=== PATIENT | female | born 1955 | race African-American/Black ===

== ENCOUNTER 2018-05-14 11:31 | Inpatient (IN) | payer OTHER ==
--- NOTE | 2018-05-14 12:19 | PDOC ---
Attending Attestation - Resident Resident Name: Mau Moreau - HPI HPI: The patient is a 62 year old female (current everyday smoker), with a significant PMH of COPD, asthma, sleep apnea, diabetes, hypertension, hypercholesterolemia, who presents to the emergency department today complaining of shortness of breath for 1 week. Patient was sent by Dr. Trivedi for her progressively worsening dyspnea on exertion and orthopnea. She reports her O2 level was 86 today, and endorses increased use of her portable O2 machine secondary to her worsening SOB. Patient also reports bilateral lower extremity edema, and notes she has not been compliant with her medications lately (only takes them when she feels it is necessary). She notes she has a massive uterine fibroid tumor, which she was told is pressing on her diaphragm causing her SOB. The patient denies headache and dizziness. Denies fever, chills, nausea, vomit, diarrhea and constipation. Denies dysuria, frequency, urgency and hematuria. Allergies: NKA Past surgical history: Appendectomy Social history: Current everyday smoker (4 cigarettes per day) PCP: Dr. Squires Senior Qualitative Researcher: Dr. Maurilio Trivedi Shell Molding Roller Blast Operator: Dr. Landon Tello 05/14/18 13:35 - Physicial Exam PE: GENERAL: Awake, alert, and fully oriented, in mild respiratory distress. HEAD: No signs of trauma EYES: PERRLA, EOMI, sclera anicteric, conjunctiva clear ENT: Auricles normal inspection, hearing grossly normal, nares patent, oropharynx clear without exudates. Moist mucosa NECK: Normal ROM, supple, no lymphadenopathy, JVD, or masses LUNGS: +Decreased air entry bilaterally. +Speaking in short sentences with mild conversational dyspnea. Breath sounds equal. No wheezes, and no crackles HEART: Regular rate and rhythm, normal S1 and S2, no murmurs, rubs or gallops ABDOMEN: Soft, nontender, normoactive bowel sounds. No guarding, no rebound. No masses EXTREMITIES: +2+ pitting edema to the knees bilaterally. Normal range of motion. No clubbing or cyanosis. No cords, erythema, or tenderness NEUROLOGICAL: Cranial nerves II through XII grossly intact. Normal speech, normal gait SKIN: Warm, Dry, normal turgor, no rashes or lesions noted. 05/14/18 13:35 - Medical Decision Making EXAM#: TYPE/EXAM: RESULT: [id number] RAD/CHEST X-RAY PORTABLE* Chest pain evaluate for infiltrate. The heart is enlarged. The right diaphragm is elevated. Left lower lung zone obscured by the cardiac silhouette. No airspace opacities are seen in the left upper lung zone, right lung. No pneumothorax seen. No large pleural effusion is seen within the limitation of the portable nature of examination. Reported By: Jairo Whitfield MD 05/14/18 14:11 Documentation prepared by LESLY Cortes, acting as medical customer service representative for Daniela Queen MD. 05/14/18 14:16 <Clara Avila - Last Filed: 05/14/18 14:16> - Medical Decision Making 05/14/18 19:00 Pt presents to the ED complaining of chronic shortness of breath that is acutely worsening. LAbs and CXR show evidence of CHF. Differential includes CHF exacerbation vs COPD. will treat with nebs and steroids and admit to medicine for continued work up. <Daniela Queen - Last Filed: 05/14/18 19:03>
[2018-05-14 12:52] LABS: BASO % 0.9 % (0-2.0); EOS % 0.7 % (0-4.5); HEMATOCRIT 28.5 % (32.4-45.2); LYMPH % 12.5 % (8-40); MCH 20.9 pg (25.7-33.7); MCHC 31.7 g/dl (32.0-36.0); MEAN CELL VOLUME 66.1 fl (80-96); MEAN PLT VOLUME 8.7 fl (7.5-11.1); MONO % 2.3 % (3.8-10.2); NEUT % 83.6 % (42.8-82.8); PLATELET COUNT 201 K/MM3 (134-434); RBC 4.31 M/mm3 (3.60-5.2); RDW 19.1 % (11.6-15.6); WHITE BLOOD COUNT 17.6 K/mm3 (4.0-10.0)
--- NOTE | 2018-05-14 12:58 | PDOC ---
History of Present Illness - General Stated Complaint: Shortness of Breath Time Seen by Provider: 05/14/18 12:09 History Source: Patient Exam Limitations: No Limitations - History of Present Illness Initial Comments: 05/14/18 12:53 The patient is a 62F with a PMH of COPD, asthma, sleep apnea, diabetes, hypertension, hypercholesterolemia who presents to the ER with 1 week of worsening SOB, sent in by Dr. Morejon, community artist. The patient states that for the past 1 week, she's had worsening WELLS and orthopnea. She denies CP, fever , chills, nausea, vomiting, cough but admits to swelling in her legs and WELLS. Past History - Past Medical History Allergies/Adverse Reactions: Allergies Allergy/AdvReac Type Severity Reaction Status Date / Time No Known Allergies Allergy Verified 04/22/18 15:29 Home Medications: Ambulatory Orders Albuterol Sulfate Inhaler - [Ventolin HFA Inhaler -] 1 - 2 inh PO QID PRN Omeprazole [Prilosec] 0 mg PO DAILY 09/29/15 Zolpidem Tartrate [Ambien] 5 mg PO HS 09/29/15 Budesonide/Formeterol Fumarate [SYMBICORT 160/4.5mcg -] 2 puff IH BID #1 inhaler 10/04/15 Meloxicam 7.5 mg PO DAILY PRN #0 10/04/15 Montelukast Na [Singulair -] 10 mg PO HS #30 tablet 10/04/15 Pravastatin Sodium 10 mg PO HS #0 10/04/15 Aspirin [ASA -] 81 mg PO DAILY 04/22/18 Gabapentin 300 mg PO QID 04/22/18 Ibuprofen 800 mg PO QID PRN 04/22/18 Linagliptin [Tradjenta] 5 mg PO DAILY 04/22/18 Asthma: Yes Diabetes: Yes HTN: Yes Hypercholesterolemia: Yes - Surgical History Abdominal Surgery: Yes Appendectomy: Yes - Suicide/Smoking/Psychosocial Hx Smoking History: Current every day smoker Have you smoked in the past 12 months: Yes Number of Cigarettes Smoked Daily: 4 Hx Alcohol Use: Yes (occassions) Drug/Substance Use Hx: No Substance Use Type: None Hx Substance Use Treatment: No Review of Systems - Review of Systems Able to Perform ROS?: Yes Comments:: 05/14/18 13:55 GENERAL/CONSTITUTIONAL: No fever or chills. No weakness. HEAD, EYES, EARS, NOSE AND THROAT: No change in vision. No ear pain or discharge. No sore throat. CARDIOVASCULAR: No chest pain, palpitations, or lightheadedness. RESPIRATORY: + for WELLS, SOB, and orthopnea. No cough or hemoptysis. GASTROINTESTINAL: No nausea, vomiting, diarrhea, constipation, or abdominal pain. GENITOURINARY: No dysuria, frequency, hematuria, or change in urination. MUSCULOSKELETAL: No joint or muscle swelling or pain. No neck or back pain. SKIN: No rash or lesions. NEUROLOGIC: No headache, numbness, tingling, focal weakness, loss of consciousness, or change in strength/sensation. Is the patient limited Bel[place]ian proficient: No *Physical Exam - Physical Exam Comments: 05/14/18 14:24 GENERAL: Well developed, well nourished. Awake and alert. No acute distress. HEENT: Normocephalic, atraumatic. Hearing grossly normal. Moist mucous membranes. PERRLA, EOMI. No conjunctival pallor. NECK: Supple. Full ROM. No JVD. CARDIOVASCULAR: Regular rate and rhythm. No murmurs, rubs, or gallops. PULMONARY: No evidence of respiratory distress. Lungs clear to auscultation bilaterally. No wheezing, rales or rhonchi. ABDOMINAL: Soft. Non-tender. Non-distended. No rebound or guarding. GENITOURINARY: No CVA tenderness bilaterally. MUSCULOSKELETAL: Normal range of motion at all joints. No bony deformities or tenderness. EXTREMITIES: No cyanosis. No clubbing. 3+ pitting edema in b/l LE. No calf tenderness or swelling. SKIN: Warm and dry. Normal capillary refill. No rashes. No jaundice. NEUROLOGICAL: Alert, awake, appropriate. Cranial nerves 2-12 grossly intact. Normal speech. Gait is normal without ataxia. PSYCHIATRIC: Cooperative. Good eye contact. Appropriate mood and affect. ED Treatment Course - LABORATORY CBC & Chemistry Diagram: 05/14/18 12:40 05/14/18 12:29 - RADIOLOGY Radiology Studies Ordered: Category Date Time Status CHEST X-RAY PORTABLE* [RAD] Stat Radiology 05/14/18 12:18 Ordered Medical Decision Making - Medical Decision Making 05/14/18 14:31 The patient is a 62F with a PMH of COPD, asthma, sleep apnea, diabetes, hypertension, hypercholesterolemia sent by community artist for SOB on exertion. Labs show WBC of 17. BNP elevated to 2000 with negative CXR. Will treat COPD and admit. Pt well appearing. *DC/Admit/Observation/Transfer Diagnosis at time of Disposition: Acute hypoxemic respiratory failure - Discharge Dispostion Condition at time of disposition: Guarded Decision to Admit order: Yes - Referrals Referrals: Christina Molina [Primary Care Provider] - - Patient Instructions - Post Discharge Activity
[2018-05-14 13:26] LABS: ALBUMIN 2.6 g/dl (3.4-5.0); ALK PHOS 82 U/L (45-117); ANION GAP 7 MMOL/L (8-16); BILIRUBIN,TOTAL 0.5 mg/dL (0.2-1); BLOOD UREA NITROGEN 20 mg/dL (7-18); CALCIUM 8.4 mg/dL (8.5-10.1); CHLORIDE 103 mmol/L (98-107); CO2 29 mmol/L (21-32); CREATININE 0.8 mg/dL (0.55-1.3); GLUCOSE,RANDOM 101 mg/dL (74-106); MAGNESIUM 2.2 mg/dL (1.8-2.4); POTASSIUM 4.8 mmol/L (3.5-5.1); SGOT/AST 15 U/L (15-37); SGPT/ALT 21 U/L (13-61); SODIUM 140 mmol/L (136-145); TOT PROT 6.7 g/dl (6.4-8.2)
[2018-05-14 13:51] LABS: INR 1.15 (0.83-1.09); PROTHROMBIN TIME (PATIENT) 13.6 SEC (9.7-13.0)
[2018-05-14] MEDS ORDERED: methylPREDNISolone NA SUCC 125 MG/2 ML VIAL IVPUSH ONE (14:17)
[2018-05-14] MEDS ORDERED: ALBUTEROL SO4 2.5/IPRATROPIUM 0.5 INH SOL 3 ML VIAL.NEB. NEB ONE ×2 (14:17→15:17)
[2018-05-14 14:36] LABS: ANISOCYTOSIS 2+; MACROCYTOSIS 0; OVALOCYTE 1+; PLATELET ESTIMATE NORMAL; TARGET CELLS 2+
[2018-05-14] MEDS ORDERED: methylPREDNISolone NA SUCC 125 MG/2 ML VIAL ONE (15:18)
[2018-05-14] MEDS ORDERED: ALBUTEROL SO4 2.5/IPRATROPIUM 0.5 INH SOL 3 ML VIAL.NEB. NEB PRN (16:12)
--- NOTE | 2018-05-14 16:21 | HP ---
Admitting History and Physical - Primary Care Physician PCP: Maurilio Trivedi - Admission Chief Complaint: sob for 3 weels History of Present Illness: The patient is a 62 year old female (current everyday smoker), with a significant PMH of COPD, asthma, sleep apnea, diabetes, hypertension, hypercholesterolemia, who presents to the emergency department today complaining of shortness of breath for 1 week. Patient was sent by Dr. Trivedi for her progressively worsening dyspnea on exertion and orthopnea. She reports her O2 level was 86 today, and endorses increased use of her portable O2 machine secondary to her worsening SOB. Patient also reports bilateral lower extremity edema, and notes she has not been compliant with her medications lately (only takes them when she feels it is necessary). She notes she has a massive uterine fibroid tumor, which she was told is pressing on her diaphragm causing her SOB. per patient she follwed Dr vasquez and was geting pre op clearance for fibroid removal but developed shortness of breath History Source: Patient, Medical Record - Past Medical History Cardiovascular: Yes: HTN, Hyperlipdemia Pulmonary: Yes: Asthma, COPD Endocrine: Yes: Diabetes Mellitus - Smoking History Smoking history: Current every day smoker Have you smoked in the past 12 months: Yes Aproximately how many cigarettes per day: 4 - Alcohol/Substance Use Hx Alcohol Use: Yes (occassions) Home Medications - Allergies Allergies/Adverse Reactions: Allergies Allergy/AdvReac Type Severity Reaction Status Date / Time No Known Allergies Allergy Verified 04/22/18 15:29 - Home Medications Home Medications: Ambulatory Orders Albuterol Sulfate Inhaler - [Ventolin HFA Inhaler -] 1 - 2 inh PO QID PRN Omeprazole [Prilosec] 40 mg PO DAILY 09/29/15 Zolpidem Tartrate [Ambien] 5 mg PO HS 09/29/15 Budesonide/Formeterol Fumarate [SYMBICORT 160/4.5mcg -] 2 puff IH BID #1 inhaler 10/04/15 Meloxicam 7.5 mg PO DAILY PRN #0 10/04/15 Montelukast Na [Singulair -] 10 mg PO HS #30 tablet 10/04/15 Pravastatin Sodium 10 mg PO HS #0 10/04/15 Aspirin [ASA -] 81 mg PO DAILY 04/22/18 Gabapentin 300 mg PO QID 04/22/18 Ibuprofen 800 mg PO QID PRN 04/22/18 Linagliptin [Tradjenta] 5 mg PO DAILY 04/22/18 Review of Systems - Review of Systems Respiratory: reports: Orthopnea, SOB Physical Examination Vital Signs: Vital Signs Temperature 97.6 F 05/14/18 11:35 Pulse Rate 103 H 05/14/18 11:35 Respiratory Rate 18 05/14/18 11:35 Blood Pressure 147/72 05/14/18 11:35 O2 Sat by Pulse Oximetry (%) 91 L 05/14/18 11:35 Constitutional: Yes: Obese Cardiovascular: Yes: Regular Rate and Rhythm, S1, S2 Respiratory: Yes: Diminished Gastrointestinal: Yes: Normal Bowel Sounds, Soft, Abdomen, Obese, Distention Edema: Yes Neurological: Yes: Alert, Oriented Labs: CBC, BMP 05/14/18 12:40 05/14/18 12:29 Imaging - Results Chest X-ray: Report Reviewed Problem List - Problems (1) Acute hypoxemic respiratory failure Assessment/Plan: copd /chf exacerbation tele echo cardiology and pulm lasix daily Code(s): J96.01 - ACUTE RESPIRATORY FAILURE WITH HYPOXIA (2) COPD (chronic obstructive pulmonary disease) Assessment/Plan: iv medrol oxygen bronchodilators Code(s): J44.9 - CHRONIC OBSTRUCTIVE PULMONARY DISEASE, UNSPECIFIED (3) Fibroid Assessment/Plan: obgyn consult tansvaginal sono was done in march shows multiple fibroids Code(s): D21.9 - BENIGN NEOPLASM OF CONNECTIVE AND OTHER SOFT TISSUE, UNSP
[2018-05-14] MEDS ORDERED: FUROSEMIDE 40 MG/4 ML INJECTABLE VIAL IVPUSH SCH (16:30)
--- NOTE | 2018-05-14 16:33 | PN ---
Progress Note (short form) - Note Progress Note: PULMONARY CONSULT PATIENT SEEN AND EXAMINED IN OFFICE. FULL CONSULT TO FOLLOW. Tejal GIFFORD MD
--- NOTE | 2018-05-14 16:47 | CON.CARD ---
Consult Consult Specialty:: Cardiology Reason for Consultation:: SOB - History of Present Illness Chief Complaint: SOB History of Present Illness: This is a 62 year old female with a history of restrictive lung disease and follows with Dr. Weber. Hx of DM, HTN, and HLD. Recently she had preop testing for a uterine fibroid surgery (postponed). She stated that she had an Echocardiogram about [address] Landon Tello in [place] . Today she was in Dr. Weber's office this AM and was sent to the ED for hypoxia down to 70% off O2. She has home O2 for about 2 years. She was placed on prednisone and has been taking 40 mg daily. She has chronic LE edema. She was prescribed a duiretic but does not take it. Smoker (states quit 5 days ago) No chest pain. EKG NSR with normal intervals, normal axis, and NSSTTW changes. Troponin X1 negative BNP 2073 - Past Medical History Cardio/Vascular: Yes: HTN, Hyperlipdemia Pulmonary: Yes: Asthma, COPD Endocrine: Yes: Diabetes Mellitus - Alcohol/Substance Use Hx Alcohol Use: Yes (occassions) - Smoking History Smoking history: Current every day smoker Have you smoked in the past 12 months: Yes Aproximately how many cigarettes per day: 4 Home Medications - Allergies Allergies/Adverse Reactions: Allergies Allergy/AdvReac Type Severity Reaction Status Date / Time No Known Allergies Allergy Verified 04/22/18 15:29 - Home Medications Home Medications: Ambulatory Orders Albuterol Sulfate Inhaler - [Ventolin HFA Inhaler -] 1 - 2 inh PO QID PRN Omeprazole [Prilosec] 40 mg PO DAILY 09/29/15 Zolpidem Tartrate [Ambien] 5 mg PO HS 09/29/15 Budesonide/Formeterol Fumarate [SYMBICORT 160/4.5mcg -] 2 puff IH BID #1 inhaler 10/04/15 Meloxicam 7.5 mg PO DAILY PRN #0 10/04/15 Montelukast Na [Singulair -] 10 mg PO HS #30 tablet 10/04/15 Pravastatin Sodium 10 mg PO HS #0 10/04/15 Aspirin [ASA -] 81 mg PO DAILY 04/22/18 Gabapentin 300 mg PO QID 04/22/18 Ibuprofen 800 mg PO QID PRN 04/22/18 Linagliptin [Tradjenta] 5 mg PO DAILY 04/22/18 Vital Signs: Vital Signs Temperature 97.6 F 05/14/18 11:35 Pulse Rate 103 H 05/14/18 11:35 Respiratory Rate 18 05/14/18 11:35 Blood Pressure 147/72 05/14/18 11:35 O2 Sat by Pulse Oximetry (%) 91 L 05/14/18 11:35 Constitutional: Yes: Mild Distress HENT: Yes: WNL Neck: Yes: Other (Positive JVD) Respiratory: Yes: Other (Bilateral crackles) Gastrointestinal: Yes: Soft (Large fibriod) Cardiovascular: Yes: Regular Rate and Rhythm (NL S1S2, no MRHG) JVD: Yes Edema: LLE: 2+, RLE: 2+ Neurological: Yes: Alert, Oriented - Other Data Labs, Other Data: CBC, BMP 05/14/18 12:40 05/14/18 12:29 INR, PTT INR 1.15 (0.83-1.09) H 05/14/18 12:29 Troponin, BNP 05/14/18 05/14/18 12:29 12:29 Troponin I 0.02 B-Natriuretic Peptide 2074.4 H Troponin, BNP 05/14/18 05/14/18 12:29 12:29 Troponin I 0.02 B-Natriuretic Peptide 2074.4 H Assessment/Plan 62 year old female with a history of restrictive lung disease and follows with Dr. Weber. Hx of DM, HTN, and HLD. Recently she had preop testing for a uterine fibroid surgery (postponed). She stated that she had an Echocardiogram about [address] Landon Tello in [place] . Today she was in Dr. Weber's office this AM and was sent to the ED for hypoxia down to 70% off O2. She has home O2 for about 2 years. She was placed on prednisone and has been taking 40 mg daily. She has chronic LE edema. She was prescribed a diuretic but does not take it. No chest pain. EKG NSR with normal intervals, normal axis, and NSSTTW changes. Troponin X1 negative BNP 2073 Cardiovascular Right sided heart failure Give Lasix 40 mg IVSS BID Daily I's/O's/Wt's/Lytes Please try to obtain recent cardiac testing from Dr. Rosales If echo is not available from Dr. Rosales, would get one here Follow troponin levels
[2018-05-14] MEDS ORDERED: FUROSEMIDE 40 MG/4 ML INJECTABLE VIAL IVPUSH ONE (17:00)
--- NOTE | 2018-05-14 18:14 | RAPID ---
Physical Examination Vital Signs: Vital Signs Temperature 97.9 F 05/14/18 16:45 Pulse Rate 98 H 05/14/18 16:45 Respiratory Rate 22 H 05/14/18 16:45 Blood Pressure 120/69 05/14/18 16:45 O2 Sat by Pulse Oximetry (%) 92 L 05/14/18 16:45 Labs: CBC, BMP 05/14/18 12:40 05/14/18 12:29 Rapid Response - Rapid Response Assessment: Patient found to be in respiratory distress. Desaturating to high 70s on nasal cannula. Rapid response called. On exam patient can speak in full sentence but tachypneic and tachycardic. BP was wnl. CXR + for pulm edema. Lasix IV 40mg ordered and Bipap. repeat ekg showed sinus tachycardia and no ischemic changes. Will order repeat troponin and revaluate.
[2018-05-14] MEDS: methylPREDNISolone NA SUCC 40 MG/1 ML VIAL IVPUSH SCH ×2 (18:15→22:30)
[2018-05-14] MEDS: INSULIN SLIDING SCALE (NOVOLOG) 1 VIAL SQ SCH ×2 (19:22→22:31)
[2018-05-14] MEDS: HEPARIN NA (PORCINE) 5,000 UNITS/ML 1ML VIAL SQ SCH (21:28)
[2018-05-14] MEDS: ATORVASTATIN CA 10 MG TABLET (FP) PO SCH (21:28)
[2018-05-14] MEDS: MONTELUKAST NA 10 MG TABLET PO SCH (21:28)
[2018-05-14] MEDS ORDERED: ZOLPIDEM TARTRATE 5 MG TABLET PO ONE (22:12)
[2018-05-14] MEDS: BUDESONIDE/FORMETEROL FUMARATE 160/4.5 mcg INHALER IH SCH (22:32)
[2018-05-15] MEDS: methylPREDNISolone NA SUCC 40 MG/1 ML VIAL IVPUSH SCH ×4 (04:00→22:50)
[2018-05-15] MEDS: INSULIN SLIDING SCALE (NOVOLOG) 1 VIAL SQ SCH ×3 (06:47→22:50)
[2018-05-15] MEDS: FUROSEMIDE 40 MG/4 ML INJECTABLE VIAL IVPUSH SCH ×2 (06:47→16:24)
[2018-05-15 07:05] LABS: BASO % 0.1 % (0-2.0); HEMATOCRIT 27.8 % (32.4-45.2); HEMOGLOBIN 8.9 GM/dL (10.7-15.3); LYMPH % 8.7 % (8-40); MCH 21.1 pg (25.7-33.7); MCHC 32.1 g/dl (32.0-36.0); MEAN CELL VOLUME 65.6 fl (80-96); MEAN PLT VOLUME 9.1 fl (7.5-11.1); MONO % 2.7 % (3.8-10.2); NEUT % 88.5 % (42.8-82.8); PLATELET COUNT 206 K/MM3 (134-434); RBC 4.24 M/mm3 (3.60-5.2); RDW 18.4 % (11.6-15.6); WHITE BLOOD COUNT 11.8 K/mm3 (4.0-10.0)
[2018-05-15 08:10] LABS: ALBUMIN 2.6 g/dl (3.4-5.0); ALK PHOS 82 U/L (45-117); ANION GAP 7 MMOL/L (8-16); BILIRUBIN,TOTAL 0.4 mg/dL (0.2-1); BLOOD UREA NITROGEN 20 mg/dL (7-18); CALCIUM 8.5 mg/dL (8.5-10.1); CHLORIDE 100 mmol/L (98-107); CO2 32 mmol/L (21-32); CREATININE 0.8 mg/dL (0.55-1.3); GLUCOSE,RANDOM 133 mg/dL (74-106); MAGNESIUM 2.4 mg/dL (1.8-2.4); POTASSIUM 4.8 mmol/L (3.5-5.1); SGOT/AST 9 U/L (15-37); SGPT/ALT 18 U/L (13-61); SODIUM 140 mmol/L (136-145); TOT PROT 6.8 g/dl (6.4-8.2)
--- NOTE | 2018-05-15 10:04 | CON.OBG ---
Consult Consult Specialty:: WARD SECRETARY Reason for Consultation:: Fibroid uterus - History of Present Illness Chief Complaint: Fibroid uterus History of Present Illness: The patient is a 62 year old female (current everyday smoker), with a significant PMH of COPD, asthma, sleep apnea, diabetes, hypertension, hypercholesterolemia, who presents to the emergency department today complaining of shortness of breath for 1 week. Patient was sent by Dr. Trivedi for her progressively worsening dyspnea on exertion and orthopnea. She reports her O2 level was 86 today, and endorses increased use of her portable O2 machine secondary to her worsening SOB. Patient also reports bilateral lower extremity edema, and notes she has not been compliant with her medications lately (only takes them when she feels it is necessary). She notes she has a massive uterine fibroid tumor, which she was told is pressing on her diaphragm causing her SOB. Patient is known to me. She was scheduled for a D&C hysteroscopy on 05/14/18 but was not medically cleared for surgery. - History Source History Provided By: Patient Limitations to Obtaining History: No Limitations - Past Medical History Cardio/Vascular: Yes: HTN, Hyperlipdemia Pulmonary: Yes: Asthma, COPD ...LMP: 05/14/18 ...: No Endocrine: Yes: Diabetes Mellitus - Past Surgical History Past Surgical History: Yes: None - Alcohol/Substance Use Hx Alcohol Use: No (occassions) - Smoking History Smoking history: Former smoker Have you smoked in the past 12 months: Yes Aproximately how many cigarettes per day: 4 If you are a former smoker, when did you quit?: last week Home Medications - Allergies Allergies/Adverse Reactions: Allergies Allergy/AdvReac Type Severity Reaction Status Date / Time No Known Allergies Allergy Verified 04/22/18 15:29 - Home Medications Home Medications: Ambulatory Orders Albuterol Sulfate Inhaler - [Ventolin HFA Inhaler -] 1 - 2 inh PO QID PRN Omeprazole [Prilosec] 40 mg PO DAILY 09/29/15 Zolpidem Tartrate [Ambien] 5 mg PO HS 09/29/15 Budesonide/Formeterol Fumarate [SYMBICORT 160/4.5mcg -] 2 puff IH BID #1 inhaler 10/04/15 Meloxicam 7.5 mg PO DAILY PRN #0 10/04/15 Montelukast Na [Singulair -] 10 mg PO HS #30 tablet 10/04/15 Pravastatin Sodium 10 mg PO HS #0 10/04/15 Aspirin [ASA -] 81 mg PO DAILY 04/22/18 Gabapentin 300 mg PO QID 04/22/18 Ibuprofen 800 mg PO QID PRN 04/22/18 Linagliptin [Tradjenta] 5 mg PO DAILY 04/22/18 Review of Systems - Review of Systems Neck: reports: No Symptoms Cardiovascular: denies: Chest Pain Respiratory: reports: SOB, SOB on Exertion Genitourinary: reports: Pain Musculoskeletal: reports: No Symptoms Neurological: reports: No Symptoms Psychiatric: reports: No Symptoms Physical Exam-WARD SECRETARY Vital Signs: Vital Signs Temperature 97.0 F L 05/15/18 06:00 Pulse Rate 92 H 05/15/18 06:00 Respiratory Rate 20 05/15/18 06:00 Blood Pressure 124/76 05/15/18 06:00 O2 Sat by Pulse Oximetry (%) 97 05/15/18 02:14 Neck: Yes: Supple Cardiovascular: Yes: Regular Rate and Rhythm Respiratory: Yes: Regular Labs: CBC, BMP 05/15/18 05:30 05/15/18 05:30 Problem List - Problems (1) Vaginal bleeding Code(s): N93.9 - ABNORMAL UTERINE AND VAGINAL BLEEDING, UNSPECIFIED Assessment/Plan Respiratory distress Abnormal vaginal bleeding Fibroid uterus D&C hysteroscopy to be scheduled as outpatient when cleared by transitional living specialist.
[2018-05-15] MEDS ORDERED: IBUPROFEN 600 MG TABLET (FP) PO PRN (10:18)
--- NOTE | 2018-05-15 11:07 | PN ---
Progress Note, Physician Chief Complaint: overnight events reviwed patient had rapid response- got lasix iv and bipap today she is awake alert currently on nasal canula - Current Medication List Current Medications: Active Medications Albuterol/Ipratropium (Duoneb -) 1 amp NEB Q6H PRN PRN Reason: SHORTNESS OF BREATH Last Admin: 05/14/18 17:35 Dose: 1 amp Aspirin (Asa -) 81 mg PO DAILY [facility] Atorvastatin Calcium (Lipitor -) 10 mg PO HS [facility] Last Admin: 05/14/18 21:28 Dose: 10 mg Budesonide/Formoterol Fumarate (Symbicort 160/4.5mcg -) 2 puff IH BID [facility] Last Admin: 05/14/18 22:32 Dose: 2 puff Furosemide (Lasix Injection -) 40 mg IVPUSH BIDLASIX [facility] Last Admin: 05/15/18 06:47 Dose: 40 mg Heparin Sodium (Porcine) (Heparin -) 5,000 unit SQ BID [facility] Last Admin: 05/14/18 21:28 Dose: 5,000 unit Ibuprofen (Motrin -) 600 mg PO Q6H PRN PRN Reason: FEVER Insulin Aspart (Novolog Vial Sliding Scale -) [address] [facility]; Protocol Last Admin: 05/15/18 06:47 Dose: Not Given Methylprednisolone Sodium Succinate (Solu-Medrol -) 40 mg IVPUSH Q6H-IV [facility] Last Admin: 05/15/18 04:00 Dose: 40 mg Montelukast Sodium (Singulair -) 10 mg PO HS [facility] Last Admin: 05/14/18 21:28 Dose: 10 mg Pantoprazole Sodium (Protonix -) 40 mg PO DAILY [facility] - Objective Vital Signs: Vital Signs Temperature 97.0 F L 05/15/18 06:00 Pulse Rate 92 H 05/15/18 06:00 Respiratory Rate 20 05/15/18 06:00 Blood Pressure 124/76 05/15/18 06:00 O2 Sat by Pulse Oximetry (%) 97 05/15/18 02:14 Constitutional: Yes: Calm Cardiovascular: Yes: Regular Rate and Rhythm, S1, S2 Respiratory: Yes: On Nasal O2, Wheezes Gastrointestinal: Yes: Normal Bowel Sounds, Soft, Abdomen, Obese Genitourinary: Yes: [place] Present Edema: Yes (improving) Neurological: Yes: Alert, Oriented Labs: CBC, BMP 05/15/18 05:30 05/15/18 05:30 INR, PTT INR 1.15 (0.83-1.09) H 05/14/18 12:29 Problem List - Problems (1) Acute hypoxemic respiratory failure Assessment/Plan: copd /chf exacerbation tele echo to be done today cardiology and pulm ob board lasix bid bipap Code(s): J96.01 - ACUTE RESPIRATORY FAILURE WITH HYPOXIA (2) COPD (chronic obstructive pulmonary disease) Assessment/Plan: iv medrol oxygen bronchodilators Code(s): J44.9 - CHRONIC OBSTRUCTIVE PULMONARY DISEASE, UNSPECIFIED (3) Fibroid Assessment/Plan: obgyn consult noted tansvaginal sono was done in march shows multiple fibroids Code(s): D21.9 - BENIGN NEOPLASM OF CONNECTIVE AND OTHER SOFT TISSUE, UNSP
--- NOTE | 2018-05-15 11:26 | PN ---
Progress Note, Physician History of Present Illness: pulmonary alert,less dyspneic,on nasal cannula c/o lower abd/pelvic discomfort - Current Medication List Current Medications: Active Medications Albuterol/Ipratropium (Duoneb -) 1 amp NEB Q6H PRN PRN Reason: SHORTNESS OF BREATH Last Admin: 05/14/18 17:35 Dose: 1 amp Aspirin (Asa -) 81 mg PO DAILY [facility] Atorvastatin Calcium (Lipitor -) 10 mg PO HS [facility] Last Admin: 05/14/18 21:28 Dose: 10 mg Budesonide/Formoterol Fumarate (Symbicort 160/4.5mcg -) 2 puff IH BID [facility] Last Admin: 05/14/18 22:32 Dose: 2 puff Furosemide (Lasix Injection -) 40 mg IVPUSH BIDLASIX [facility] Last Admin: 05/15/18 06:47 Dose: 40 mg Heparin Sodium (Porcine) (Heparin -) 5,000 unit SQ BID [facility] Last Admin: 05/14/18 21:28 Dose: 5,000 unit Ibuprofen (Motrin -) 600 mg PO Q6H PRN PRN Reason: FEVER Insulin Aspart (Novolog Vial Sliding Scale -) 1 vial SQ ACHS [facility]; Protocol Last Admin: 05/15/18 06:47 Dose: Not Given Methylprednisolone Sodium Succinate (Solu-Medrol -) 40 mg IVPUSH Q6H-IV [facility] Last Admin: 05/15/18 04:00 Dose: 40 mg Montelukast Sodium (Singulair -) 10 mg PO HS [facility] Last Admin: 05/14/18 21:28 Dose: 10 mg Pantoprazole Sodium (Protonix -) 40 mg PO DAILY [facility] - Objective Vital Signs: Vital Signs Temperature 97.0 F L 05/15/18 06:00 Pulse Rate 92 H 05/15/18 06:00 Respiratory Rate 20 05/15/18 06:00 Blood Pressure 124/76 05/15/18 06:00 O2 Sat by Pulse Oximetry (%) 97 05/15/18 02:14 Constitutional: Yes: Calm, Obese Eyes: Yes: WNL HENT: Yes: WNL Neck: Yes: WNL Cardiovascular: Yes: Regular Rate and Rhythm, S1, S2 Respiratory: Yes: Rales, Wheezes (scattered wheezes) Gastrointestinal: Yes: Normal Bowel Sounds, Soft, Other (+ fibroid) Extremities: Yes: WNL Edema: Yes Labs: CBC, BMP 05/15/18 05:30 05/15/18 05:30 INR, PTT INR 1.15 (0.83-1.09) H 05/14/18 12:29 Assessment/Plan IMP ACUTE ON CHRONIC HYPOXEMIC RESPIRATORY FAILURE COPD LIKELY CHF PULMONARY HTN FIBROIDS MARTINA TOBACCO ABUSE PLAN IV STEROIDS INHALED BRONCHODILATORS LASIX O2 ABG DAILY WT ECHO CHEST CT NIPPV AT NIGHT AND PRN ANALGESICS DR CROOKS
[2018-05-15] MEDS: ACETAMINOPHEN WITH CODEINE 300MG/30MG TABLET PO PRN ×3 (11:39→22:49)
[2018-05-15] MEDS: PANTOPRAZOLE 40 MG TABLET (FP) PO SCH (11:40)
[2018-05-15] MEDS: ASPIRIN 81 MG CHEWABLE TABLETS PO SCH (11:40)
[2018-05-15] MEDS: HEPARIN NA (PORCINE) 5,000 UNITS/ML 1ML VIAL SQ SCH ×2 (11:40→22:51)
[2018-05-15] MEDS: BUDESONIDE/FORMETEROL FUMARATE 160/4.5 mcg INHALER IH SCH ×2 (11:41→22:51)
--- NOTE | 2018-05-15 14:25 | EKG ---
Test Reason : Blood Pressure : / mmHG Vent. Rate : 102 BPM Atrial Rate : 102 BPM P-R Int : 126 ms QRS Dur : 082 ms QT Int : 340 ms P-R-T Axes : 044 029 012 degrees QTc Int : 443 ms POOR DATA QUALITY, INTERPRETATION MAY BE ADVERSELY AFFECTED SINUS TACHYCARDIA WHEN COMPARED WITH ECG OF 14-MAY-2018 15:24, NONSPECIFIC T WAVE ABNORMALITY NO LONGER EVIDENT IN ANTERIOR LEADS Confirmed by GRACIELA JAMES, NERIS ([id number]) on 05/15/2018 2:24:52 PM Referred By: Confirmed By:NERIS OWENS MD
--- NOTE | 2018-05-15 14:27 | EKG ---
Test Reason : Blood Pressure : / mmHG Vent. Rate : 100 BPM Atrial Rate : 100 BPM P-R Int : 122 ms QRS Dur : 092 ms QT Int : 342 ms P-R-T Axes : 042 007 021 degrees QTc Int : 441 ms NORMAL SINUS RHYTHM POSSIBLE LEFT ATRIAL ENLARGEMENT NONSPECIFIC ST ABNORMALITY POOR R WAVE PROGRESSION Confirmed by NERIS OWENS MD ([id number]) on 05/15/2018 2:26:45 PM Referred By: Confirmed By:NERIS OWENS MD
--- NOTE | 2018-05-15 15:29 | PN ---
Progress Note, Physician Chief Complaint: \ Improved respiratory status History of Present Illness: This is a 62 year old female with a history of restrictive lung disease and follows with Dr. Weber. Hx of DM, HTN, and HLD. Recently she had preop testing for a uterine fibroid surgery (postponed). She stated that she had an Echocardiogram about [address] Landon Tello in [place] . Today she was in Dr. Weber's office this AM and was sent to the ED for hypoxia down to 70% off O2. She has home O2 for about 2 years. She was placed on prednisone and has been taking 40 mg daily. She has chronic LE edema. She was prescribed a duiretic but does not take it. Smoker (states quit 5 days ago) No chest pain. EKG NSR with normal intervals, normal axis, and NSSTTW changes. Troponin negative BNP 2073 Rapid response noted 05/15/18 Now appears comfortable - Current Medication List Current Medications: Active Medications Acetaminophen/Codeine Phosphate (Tylenol # 3 -) 1 tab PO Q4H PRN PRN Reason: PAIN LEVEL 6-10 Last Admin: 05/15/18 11:39 Dose: 1 tab Albuterol/Ipratropium (Duoneb -) 1 amp NEB Q6H PRN PRN Reason: SHORTNESS OF BREATH Last Admin: 05/14/18 17:35 Dose: 1 amp Aspirin (Asa -) 81 mg PO DAILY [facility] Last Admin: 05/15/18 11:40 Dose: 81 mg Atorvastatin Calcium (Lipitor -) 10 mg PO HS [facility] Last Admin: 05/14/18 21:28 Dose: 10 mg Budesonide/Formoterol Fumarate (Symbicort 160/4.5mcg -) 2 puff IH BID [facility] Last Admin: 05/15/18 11:41 Dose: 2 puff Furosemide (Lasix Injection -) 40 mg IVPUSH BIDLASIX [facility] Last Admin: 05/15/18 06:47 Dose: 40 mg Heparin Sodium (Porcine) (Heparin -) 5,000 unit SQ BID [facility] Last Admin: 05/15/18 11:40 Dose: 5,000 unit Ibuprofen (Motrin -) 600 mg PO Q6H PRN PRN Reason: FEVER Insulin Aspart (Novolog Vial Sliding Scale -) 1 vial SQ [facility]; Protocol Last Admin: 05/15/18 06:47 Dose: Not Given Methylprednisolone Sodium Succinate (Solu-Medrol -) 40 mg IVPUSH Q6H-IV [facility] Last Admin: 05/15/18 11:40 Dose: 40 mg Montelukast Sodium (Singulair -) 10 mg PO HS [facility] Last Admin: 05/14/18 21:28 Dose: 10 mg Pantoprazole Sodium (Protonix -) 40 mg PO DAILY [facility] Last Admin: 05/15/18 11:40 Dose: 40 mg - Objective Vital Signs: Vital Signs Temperature 97.9 F 05/15/18 14:00 Pulse Rate 95 H 05/15/18 14:00 Respiratory Rate 20 05/15/18 14:00 Blood Pressure 92/55 L 05/15/18 14:00 O2 Sat by Pulse Oximetry (%) 97 05/15/18 12:00 Constitutional: Yes: No Distress Neck: Yes: WNL Cardiovascular: Yes: Regular Rate and Rhythm (NL S1S2 No MRHG) Respiratory: Yes: Dullness (Bibasilar) Gastrointestinal: Yes: Soft Edema: LLE: 1+, RLE: 1+ Neurological: Yes: Alert, Oriented Labs: CBC, BMP 05/15/18 05:30 05/15/18 05:30 INR, PTT INR 1.15 (0.83-1.09) H 05/14/18 12:29 Assessment/Plan 62 year old female with a history of restrictive lung disease and follows with Dr. Weber. Hx of DM, HTN, and HLD. Recently she had preop testing for a uterine fibroid surgery (postponed). She stated that she had an Echocardiogram about [address] Landon Tello in [place] . Today she was in Dr. Weber's office this AM and was sent to the ED for hypoxia down to 70% off O2. She has home O2 for about 2 years. She was placed on prednisone and has been taking 40 mg daily. She has chronic LE edema. She was prescribed a diuretic but does not take it. No chest pain. EKG NSR with normal intervals, normal axis, and NSSTTW changes. Troponin X1 negative BNP 2073 Rapid response noted Cardiovascular Right sided heart failure Give Lasix 40 mg IVSS BID Daily I's/O's/Wt's/Lytes Please try to obtain recent cardiac testing from Dr. Rosales If echo is not available from Dr. Rosales, would get one here Troponin negative Clinically improving
[2018-05-15] MEDS: ATORVASTATIN CA 10 MG TABLET (FP) PO SCH (22:51)
[2018-05-15] MEDS: MONTELUKAST NA 10 MG TABLET PO SCH (22:51)
[2018-05-16] MEDS: methylPREDNISolone NA SUCC 40 MG/1 ML VIAL IVPUSH SCH ×4 (03:26→21:15)
[2018-05-16] MEDS: FUROSEMIDE 40 MG/4 ML INJECTABLE VIAL IVPUSH SCH ×2 (06:47→13:43)
[2018-05-16] MEDS: INSULIN SLIDING SCALE (NOVOLOG) 1 VIAL SQ SCH ×4 (06:47→21:15)
[2018-05-16] MEDS: PANTOPRAZOLE 40 MG TABLET (FP) PO SCH (09:05)
[2018-05-16] MEDS: ASPIRIN 81 MG CHEWABLE TABLETS PO SCH (09:05)
[2018-05-16] MEDS: HEPARIN NA (PORCINE) 5,000 UNITS/ML 1ML VIAL SQ SCH ×2 (09:05→21:22)
[2018-05-16] MEDS: ACETAMINOPHEN WITH CODEINE 300MG/30MG TABLET PO PRN ×2 (09:15→21:59)
--- NOTE | 2018-05-16 10:30 | PN ---
Progress Note, Physician History of Present Illness: pulmonary alert,feeling better,less dyspneic,less pelvic pain - Current Medication List Current Medications: Active Medications Acetaminophen/Codeine Phosphate (Tylenol # 3 -) 1 tab PO Q4H PRN PRN Reason: PAIN LEVEL 6-10 Last Admin: 05/16/18 09:15 Dose: 1 tab Albuterol/Ipratropium (Duoneb -) 1 amp NEB Q6H PRN PRN Reason: SHORTNESS OF BREATH Last Admin: 05/14/18 17:35 Dose: 1 amp Aspirin (Asa -) 81 mg PO DAILY [facility] Last Admin: 05/16/18 09:05 Dose: 81 mg Atorvastatin Calcium (Lipitor -) 10 mg PO HS [facility] Last Admin: 05/15/18 22:51 Dose: 10 mg Budesonide/Formoterol Fumarate (Symbicort 160/4.5mcg -) 2 puff IH BID [facility] Last Admin: 05/15/18 22:51 Dose: 2 puff Furosemide (Lasix Injection -) 40 mg IVPUSH BIDLASIX [facility] Last Admin: 05/16/18 06:47 Dose: 40 mg Heparin Sodium (Porcine) (Heparin -) 5,000 unit SQ BID [facility] Last Admin: 05/16/18 09:05 Dose: 5,000 unit Ibuprofen (Motrin -) 600 mg PO Q6H PRN PRN Reason: FEVER Last Admin: 05/15/18 22:52 Dose: 600 mg Insulin Aspart (Novolog Vial Sliding Scale -) 1 vial SQ ACHS [facility]; Protocol Last Admin: 05/16/18 06:47 Dose: Not Given Methylprednisolone Sodium Succinate (Solu-Medrol -) 40 mg IVPUSH Q6H-IV [facility] Last Admin: 05/16/18 09:05 Dose: 40 mg Montelukast Sodium (Singulair -) 10 mg PO HS [facility] Last Admin: 05/15/18 22:51 Dose: 10 mg Pantoprazole Sodium (Protonix -) 40 mg PO DAILY [facility] Last Admin: 05/16/18 09:05 Dose: 40 mg - Objective Vital Signs: Vital Signs Temperature 97.4 F L 05/16/18 06:00 Pulse Rate 86 05/16/18 06:00 Respiratory Rate 20 05/16/18 06:00 Blood Pressure 139/79 05/16/18 06:00 O2 Sat by Pulse Oximetry (%) 94 L 05/16/18 05:40 Constitutional: Yes: Calm, Obese Eyes: Yes: WNL HENT: Yes: WNL Neck: Yes: WNL Cardiovascular: Yes: Regular Rate and Rhythm, S1, S2 Respiratory: Yes: Wheezes (few scattered wheezes) Gastrointestinal: Yes: Normal Bowel Sounds, Soft, Other (+ fibroid) Extremities: Yes: WNL Edema: Yes Labs: CBC, BMP - ....Imaging Cat Scan: Image Reviewed Assessment/Plan IMP ACUTE ON CHRONIC HYPOXEMIC RESPIRATORY FAILURE COPD LIKELY CHF PULMONARY HTN FIBROIDS MARTINA TOBACCO ABUSE PLAN IV STEROIDS SAME DOSE INHALED BRONCHODILATORS LASIX O2 ABG pending DAILY WT ECHO pending NIPPV AT NIGHT AND PRN ANALGESICS DR CROOKS
[2018-05-16] MEDS: BUDESONIDE/FORMETEROL FUMARATE 160/4.5 mcg INHALER IH SCH ×2 (11:10→21:17)
--- NOTE | 2018-05-16 11:50 | PN ---
Progress Note, Physician - Current Medication List Current Medications: Active Medications Acetaminophen/Codeine Phosphate (Tylenol # 3 -) 1 tab PO Q4H PRN PRN Reason: PAIN LEVEL 6-10 Last Admin: 05/16/18 09:15 Dose: 1 tab Albuterol/Ipratropium (Duoneb -) 1 amp NEB Q6H PRN PRN Reason: SHORTNESS OF BREATH Last Admin: 05/14/18 17:35 Dose: 1 amp Aspirin (Asa -) 81 mg PO DAILY [facility] Last Admin: 05/16/18 09:05 Dose: 81 mg Atorvastatin Calcium (Lipitor -) 10 mg PO HS [facility] Last Admin: 05/15/18 22:51 Dose: 10 mg Budesonide/Formoterol Fumarate (Symbicort 160/4.5mcg -) 2 puff IH BID [facility] Last Admin: 05/16/18 11:10 Dose: 2 puff Furosemide (Lasix Injection -) 40 mg IVPUSH BIDLASIX [facility] Last Admin: 05/16/18 06:47 Dose: 40 mg Heparin Sodium (Porcine) (Heparin -) 5,000 unit SQ BID [facility] Last Admin: 05/16/18 09:05 Dose: 5,000 unit Insulin Aspart (Novolog Vial Sliding Scale -) 1 vial SQ ACHS [facility]; Protocol Last Admin: 05/16/18 11:25 Dose: Not Given Methylprednisolone Sodium Succinate (Solu-Medrol -) 40 mg IVPUSH Q6H-IV [facility] Last Admin: 05/16/18 09:05 Dose: 40 mg Montelukast Sodium (Singulair -) 10 mg PO HS [facility] Last Admin: 05/15/18 22:51 Dose: 10 mg Pantoprazole Sodium (Protonix -) 40 mg PO DAILY [facility] Last Admin: 05/16/18 09:05 Dose: 40 mg - Objective Vital Signs: Vital Signs Temperature 97.4 F L 05/16/18 06:00 Pulse Rate 86 05/16/18 06:00 Respiratory Rate 20 05/16/18 06:00 Blood Pressure 139/79 05/16/18 06:00 O2 Sat by Pulse Oximetry (%) 94 L 05/16/18 05:40 Cardiovascular: Yes: S1, S2 Respiratory: Yes: Diminished, On Nasal O2, Rales Gastrointestinal: Yes: Normal Bowel Sounds, Soft Labs: CBC, BMP 05/15/18 05:30 05/15/18 05:30 INR, PTT INR 1.15 (0.83-1.09) H 05/14/18 12:29 Problem List - Problems (1) COPD (chronic obstructive pulmonary disease) Assessment/Plan: -IV STEROIDS NEBS PULM ON BOARD Code(s): J44.9 - CHRONIC OBSTRUCTIVE PULMONARY DISEASE, UNSPECIFIED (2) CHF (congestive heart failure) Assessment/Plan: IV LASIX CARDIO ON BOARD FOLLOW LABS CXR Code(s): I50.9 - HEART FAILURE, UNSPECIFIED (3) Acute hypoxemic respiratory failure Assessment/Plan: DUE TO COPD/CHF Code(s): J96.01 - ACUTE RESPIRATORY FAILURE WITH HYPOXIA (4) Fibroid Assessment/Plan: PROCESS SPECIALIST CONSULT NOTED Code(s): D21.9 - BENIGN NEOPLASM OF CONNECTIVE AND OTHER SOFT TISSUE, UNSP (5) DM (diabetes mellitus) Assessment/Plan: BGM Code(s): E11.9 - TYPE 2 DIABETES MELLITUS WITHOUT COMPLICATIONS Qualifiers: Diabetes mellitus type: type 2 (6) Anemia Assessment/Plan: MONITOR MAYBE DUE TO FIBROID GI OUTPATIENT Code(s): D64.9 - ANEMIA, UNSPECIFIED
[2018-05-16] MEDS: ATORVASTATIN CA 10 MG TABLET (FP) PO SCH (21:17)
[2018-05-16] MEDS: MONTELUKAST NA 10 MG TABLET PO SCH (21:17)
[2018-05-17] MEDS: methylPREDNISolone NA SUCC 40 MG/1 ML VIAL IVPUSH SCH ×4 (03:10→21:32)
[2018-05-17] MEDS: FUROSEMIDE 40 MG/4 ML INJECTABLE VIAL IVPUSH SCH ×2 (06:50→13:23)
[2018-05-17] MEDS: INSULIN SLIDING SCALE (NOVOLOG) 1 VIAL SQ SCH ×4 (07:06→21:32)
[2018-05-17 07:22] LABS: ALBUMIN 2.8 g/dl (3.4-5.0); ALK PHOS 76 U/L (45-117); ANION GAP 6 MMOL/L (8-16); BILIRUBIN,TOTAL 0.6 mg/dL (0.2-1); BLOOD UREA NITROGEN 33 mg/dL (7-18); CALCIUM 8.6 mg/dL (8.5-10.1); CHLORIDE 99 mmol/L (98-107); CO2 34 mmol/L (21-32); CREATININE 0.8 mg/dL (0.55-1.3); GLUCOSE,RANDOM 113 mg/dL (74-106); POTASSIUM 4.5 mmol/L (3.5-5.1); SGOT/AST 11 U/L (15-37); SGPT/ALT 22 U/L (13-61); SODIUM 139 mmol/L (136-145); TOT PROT 6.8 g/dl (6.4-8.2)
[2018-05-17 07:23] LABS: BASO % 0.2 % (0-2.0); HEMATOCRIT 26.9 % (32.4-45.2); HEMOGLOBIN 8.6 GM/dL (10.7-15.3); LYMPH % 6.5 % (8-40); MCH 20.9 pg (25.7-33.7); MCHC 31.9 g/dl (32.0-36.0); MEAN CELL VOLUME 65.6 fl (80-96); MEAN PLT VOLUME 8.8 fl (7.5-11.1); MONO % 5.1 % (3.8-10.2); NEUT % 88.2 % (42.8-82.8); PLATELET COUNT 215 K/MM3 (134-434); RDW 18.6 % (11.6-15.6)
[2018-05-17] MEDS: ASPIRIN 81 MG CHEWABLE TABLETS PO SCH (09:21)
[2018-05-17] MEDS: PANTOPRAZOLE 40 MG TABLET (FP) PO SCH (09:21)
[2018-05-17] MEDS: HEPARIN NA (PORCINE) 5,000 UNITS/ML 1ML VIAL SQ SCH ×2 (09:21→21:33)
[2018-05-17] MEDS: BUDESONIDE/FORMETEROL FUMARATE 160/4.5 mcg INHALER IH SCH ×2 (09:25→21:33)
--- NOTE | 2018-05-17 11:12 | PN ---
Progress Note, Physician History of Present Illness: PULMONARY ALERT,C/O SOB WITH MIN EXERTION,O2 SAT 78 ON O2 WITH EXERTION,94% AT REST,LESS ABD DISCOMFORT - Current Medication List Current Medications: Active Medications Acetaminophen/Codeine Phosphate (Tylenol # 3 -) 1 tab PO Q4H PRN PRN Reason: PAIN LEVEL 6-10 Last Admin: 05/16/18 21:59 Dose: 1 tab Albuterol/Ipratropium (Duoneb -) 1 amp NEB Q6H PRN PRN Reason: SHORTNESS OF BREATH Last Admin: 05/14/18 17:35 Dose: 1 amp Aspirin (Asa -) 81 mg PO DAILY [facility] Last Admin: 05/17/18 09:21 Dose: 81 mg Atorvastatin Calcium (Lipitor -) 10 mg PO HS [facility] Last Admin: 05/16/18 21:17 Dose: 10 mg Budesonide/Formoterol Fumarate (Symbicort 160/4.5mcg -) 2 puff IH BID [facility] Last Admin: 05/17/18 09:25 Dose: 2 puff Furosemide (Lasix Injection -) 40 mg IVPUSH BIDLASIX [facility] Last Admin: 05/17/18 06:50 Dose: 40 mg Heparin Sodium (Porcine) (Heparin -) 5,000 unit SQ BID [facility] Last Admin: 05/17/18 09:21 Dose: 5,000 unit Insulin Aspart (Novolog Vial Sliding Scale -) 1 vial SQ ACHS [facility]; Protocol Last Admin: 05/17/18 07:06 Dose: Not Given Methylprednisolone Sodium Succinate (Solu-Medrol -) 40 mg IVPUSH Q6H-IV [facility] Last Admin: 05/17/18 09:21 Dose: 40 mg Montelukast Sodium (Singulair -) 10 mg PO HS [facility] Last Admin: 05/16/18 21:17 Dose: 10 mg Pantoprazole Sodium (Protonix -) 40 mg PO DAILY [facility] Last Admin: 05/17/18 09:21 Dose: 40 mg - Objective Vital Signs: Vital Signs Temperature 97.4 F L 05/17/18 10:00 Pulse Rate 101 H 05/17/18 10:00 Respiratory Rate 22 H 05/17/18 10:00 Blood Pressure 110/50 L 05/17/18 10:00 O2 Sat by Pulse Oximetry (%) 91 L 05/17/18 09:00 Constitutional: Yes: Calm, Obese Eyes: Yes: WNL HENT: Yes: WNL Neck: Yes: WNL Cardiovascular: Yes: Regular Rate and Rhythm, S1, S2 Respiratory: Yes: Wheezes (FEW SCATTERED WHEEZES) Gastrointestinal: Yes: Normal Bowel Sounds, Soft, Other (FIBROID) Extremities: Yes: WNL Edema: Yes Labs: CBC, BMP 05/17/18 05:30 05/17/18 05:30 INR, PTT INR 1.15 (0.83-1.09) H 05/14/18 12:29 Assessment/Plan IMP ACUTE ON CHRONIC HYPOXEMIC RESPIRATORY FAILURE COPD LIKELY CHF PULMONARY HTN FIBROIDS MARTINA TOBACCO ABUSE PLAN IV STEROIDS SAME DOSE INHALED BRONCHODILATORS LASIX O2 ABG pending DAILY WT ECHO pending NIPPV AT NIGHT AND PRN ANALGESICS DR CROOKS
[2018-05-17] MEDS: ACETAMINOPHEN WITH CODEINE 300MG/30MG TABLET PO PRN ×2 (12:19→22:08)
--- NOTE | 2018-05-17 12:20 | PN ---
Progress Note, Physician History of Present Illness: feels better - Current Medication List Current Medications: Active Medications Acetaminophen/Codeine Phosphate (Tylenol # 3 -) 1 tab PO Q4H PRN PRN Reason: PAIN LEVEL 6-10 Last Admin: 05/17/18 12:19 Dose: 1 tab Albuterol/Ipratropium (Duoneb -) 1 amp NEB Q6H PRN PRN Reason: SHORTNESS OF BREATH Last Admin: 05/14/18 17:35 Dose: 1 amp Aspirin (Asa -) 81 mg PO DAILY [facility] Last Admin: 05/17/18 09:21 Dose: 81 mg Atorvastatin Calcium (Lipitor -) 10 mg PO HS [facility] Last Admin: 05/16/18 21:17 Dose: 10 mg Budesonide/Formoterol Fumarate (Symbicort 160/4.5mcg -) 2 puff IH BID [facility] Last Admin: 05/17/18 09:25 Dose: 2 puff Furosemide (Lasix Injection -) 40 mg IVPUSH BIDLASIX [facility] Last Admin: 05/17/18 06:50 Dose: 40 mg Heparin Sodium (Porcine) (Heparin -) 5,000 unit SQ BID [facility] Last Admin: 05/17/18 09:21 Dose: 5,000 unit Insulin Aspart (Novolog Vial Sliding Scale -) 1 vial SQ ACHS [facility]; Protocol Last Admin: 05/17/18 11:35 Dose: Not Given Methylprednisolone Sodium Succinate (Solu-Medrol -) 40 mg IVPUSH Q6H-IV [facility] Last Admin: 05/17/18 09:21 Dose: 40 mg Montelukast Sodium (Singulair -) 10 mg PO HS [facility] Last Admin: 05/16/18 21:17 Dose: 10 mg Pantoprazole Sodium (Protonix -) 40 mg PO DAILY [facility] Last Admin: 05/17/18 09:21 Dose: 40 mg - Objective Vital Signs: Vital Signs Temperature 97.4 F L 05/17/18 10:00 Pulse Rate 101 H 05/17/18 10:00 Respiratory Rate 22 H 05/17/18 10:00 Blood Pressure 110/50 L 05/17/18 10:00 O2 Sat by Pulse Oximetry (%) 94 L 05/17/18 11:59 Cardiovascular: Yes: S1, S2 Respiratory: Yes: Regular, CTA Bilaterally Gastrointestinal: Yes: Normal Bowel Sounds, Soft Edema: Yes Labs: CBC, BMP 03/10/19 05:30 05/17/18 05:30 INR, PTT INR 1.15 (0.83-1.09) H 05/14/18 12:29 Problem List - Problems (1) COPD (chronic obstructive pulmonary disease) Assessment/Plan: -IV STEROIDS NEBS PULM ON BOARD Code(s): J44.9 - CHRONIC OBSTRUCTIVE PULMONARY DISEASE, UNSPECIFIED (2) CHF (congestive heart failure) Assessment/Plan: IV LASIX CARDIO ON BOARD FOLLOW LABS CXR Code(s): I50.9 - HEART FAILURE, UNSPECIFIED (3) Acute hypoxemic respiratory failure Assessment/Plan: DUE TO COPD/CHF Code(s): J96.01 - ACUTE RESPIRATORY FAILURE WITH HYPOXIA (4) Fibroid Assessment/Plan: RIVET TESTER CONSULT NOTED Code(s): D21.9 - BENIGN NEOPLASM OF CONNECTIVE AND OTHER SOFT TISSUE, UNSP (5) DM (diabetes mellitus) Assessment/Plan: BGM Code(s): E11.9 - TYPE 2 DIABETES MELLITUS WITHOUT COMPLICATIONS Qualifiers: Diabetes mellitus type: type 2 (6) Anemia Assessment/Plan: MONITOR MAYBE DUE TO FIBROID GI OUTPATIENT Code(s): D64.9 - ANEMIA, UNSPECIFIED
[2018-05-17 14:22] VITALS: BMI 50.8
[2018-05-17] MEDS: MONTELUKAST NA 10 MG TABLET PO SCH (21:24)
[2018-05-17] MEDS: ATORVASTATIN CA 10 MG TABLET (FP) PO SCH (21:24)
[2018-05-17] MEDS: ZOLPIDEM TARTRATE 5 MG TABLET PO PRN (22:08)
[2018-05-18] MEDS: methylPREDNISolone NA SUCC 40 MG/1 ML VIAL IVPUSH SCH ×3 (03:17→17:55)
[2018-05-18] MEDS: FUROSEMIDE 40 MG/4 ML INJECTABLE VIAL IVPUSH SCH ×2 (06:19→14:19)
[2018-05-18] MEDS: INSULIN SLIDING SCALE (NOVOLOG) 1 VIAL SQ SCH ×4 (06:22→22:03)
[2018-05-18 07:12] LABS: SERUM IRON SATURATION 12 % (15-55); TOTAL IRON BINDING CAPACITY 246 ug/dL (250-450); UIBC 216 ug/dL (118-369)
[2018-05-18 08:50] LABS: BASO % 0.1 % (0-2.0); HEMATOCRIT 30.4 % (32.4-45.2); HEMOGLOBIN 9.5 GM/dL (10.7-15.3); LYMPH % 8.3 % (8-40); MCH 20.5 pg (25.7-33.7); MCHC 31.1 g/dl (32.0-36.0); MEAN PLT VOLUME 8.8 fl (7.5-11.1); MONO % 5.3 % (3.8-10.2); NEUT % 86.3 % (42.8-82.8); PLATELET COUNT 228 K/MM3 (134-434); RBC 4.61 M/mm3 (3.60-5.2); RDW 18.8 % (11.6-15.6); WHITE BLOOD COUNT 13.2 K/mm3 (4.0-10.0)
[2018-05-18] MEDS ORDERED: PT OWN MED DRAWER 7, Y5N ONE ×2 (09:00→20:59)
[2018-05-18] MEDS: ACETAMINOPHEN WITH CODEINE 300MG/30MG TABLET PO PRN ×3 (09:12→22:56)
[2018-05-18 09:20] LABS: ALK PHOS 88 U/L (45-117); ANION GAP 8 MMOL/L (8-16); BILIRUBIN,TOTAL 0.8 mg/dL (0.2-1); BLOOD UREA NITROGEN 32 mg/dL (7-18); CALCIUM 8.7 mg/dL (8.5-10.1); CHLORIDE 95 mmol/L (98-107); CO2 35 mmol/L (21-32); GLUCOSE,RANDOM 114 mg/dL (74-106); POTASSIUM 4.5 mmol/L (3.5-5.1); SGOT/AST 18 U/L (15-37); SGPT/ALT 26 U/L (13-61); SODIUM 137 mmol/L (136-145); TOT PROT 7.4 g/dl (6.4-8.2)
--- NOTE | 2018-05-18 10:03 | CON.GI ---
Consult Consult Specialty:: GI Referred by:: Dr. Taveras Reason for Consultation:: Anemia - History of Present Illness Chief Complaint: Anemia History of Present Illness: Patient is a 62 y/o female with past medical history of COPD, diabetes, hypercholesterolemia, HTN, asthma, sleep apnea, uterine fibroids. Patient was scheduled for D&C hysteroscopy on 05/14/18 but was not medically cleared. Patient complains of lower abdominal pain described as sharp. Patient states she experiences heavy vaginal bleeding with clots noted. Patient denies dysphagia, heartburn, nausea, vomiting. Denies diarrhea, constipation, rectal bleeding, melena, or abnormal weight loss. - History Source History Provided By: Patient Limitations to Obtaining History: No Limitations - Past Medical History Cardio/Vascular: Yes: HTN, Hyperlipdemia Pulmonary: Yes: Asthma, COPD ...LMP: 05/14/18 ...: No Endocrine: Yes: Diabetes Mellitus - Past Surgical History Past Surgical History: Yes: None - Alcohol/Substance Use Hx Alcohol Use: No (occassions) - Smoking History Smoking history: Former smoker Have you smoked in the past 12 months: Yes Aproximately how many cigarettes per day: 4 If you are a former smoker, when did you quit?: last week - Social History ADL: Independent Home Medications - Allergies Allergies/Adverse Reactions: Allergies Allergy/AdvReac Type Severity Reaction Status Date / Time No Known Allergies Allergy Verified 04/22/18 15:29 - Home Medications Home Medications: Ambulatory Orders Albuterol Sulfate Inhaler - [Ventolin HFA Inhaler -] 1 - 2 inh PO QID PRN Omeprazole [Prilosec] 40 mg PO DAILY 09/29/15 Zolpidem Tartrate [Ambien] 5 mg PO HS 09/29/15 Budesonide/Formeterol Fumarate [SYMBICORT 160/4.5mcg -] 2 puff IH BID #1 inhaler 10/04/15 Meloxicam 7.5 mg PO DAILY PRN #0 10/04/15 Montelukast Na [Singulair -] 10 mg PO HS #30 tablet 10/04/15 Pravastatin Sodium 10 mg PO HS #0 10/04/15 Aspirin [ASA -] 81 mg PO DAILY 04/22/18 Gabapentin 300 mg PO QID 04/22/18 Ibuprofen 800 mg PO QID PRN 04/22/18 Linagliptin [Tradjenta] 5 mg PO DAILY 04/22/18 Family Disease History - Family Disease History Family Disease History: Other: Grandparent (maternal grandmother-pelvic CA) Review of Systems - Review of Systems Constitutional: reports: No Symptoms Eyes: reports: No Symptoms HENT: reports: No Symptoms Neck: reports: No Symptoms Cardiovascular: reports: No Symptoms Respiratory: reports: SOB on Exertion Gastrointestinal: reports: Abdominal Pain Genitourinary: reports: Vaginal Bleeding Breasts: reports: No Symptoms Reported Musculoskeletal: reports: No Symptoms Integumentary: reports: No Symptoms Neurological: reports: No Symptoms Endocrine: reports: No Symptoms Hematology/Lymphatic: reports: No Symptoms Psychiatric: reports: No Symptoms Physical Exam-GI Vital Signs: Vital Signs Temperature 98.4 F 05/18/18 06:00 Pulse Rate 93 H 05/18/18 06:00 Respiratory Rate 21 H 05/18/18 06:00 Blood Pressure 116/67 05/18/18 06:00 O2 Sat by Pulse Oximetry (%) 95 05/18/18 07:54 Constitutional: Yes: No Distress, Calm, Obese Eyes: Yes: Conjunctiva Clear HENT: Yes: Atraumatic Neck: Yes: Supple Cardiovascular: Yes: Regular Rate and Rhythm Respiratory: Yes: CTA Bilaterally, On Nasal O2 Gastrointestinal Inspection: Yes: WNL. No: Ascites, Distention, Hernia, Scars, Other ...Auscultate: Yes: Hypoactive Bowel Sounds. No: Normoactive Bowel Sounds, Hyperactive Bowel Sounds, No Bowel Sounds, Other ...Palpate: Yes: Soft, Tenderness (LUQ and LLQ). No: Firm/Rigid, Guarding, Hepatomegaly, Mass, Pulsatile Mass, Splenomegaly, Tenderness, Epigastium, Tenderness, Rebound, Other ...Percussion: Yes: Tympanitic. No: Dullness, Fluid Wave, Other Labs: CBC, BMP 05/18/18 08:08 05/18/18 08:08 INR, PTT INR 1.15 (0.83-1.09) H 05/14/18 12:29 Active Medications Generic Name Dose Route Start Last Admin Trade Name Freq PRN Reason Stop Dose Admin Acetaminophen/Codeine Phosphate 1 tab 05/15/18 11:32 05/18/18 09:12 Tylenol # 3 - PO 1 tab Q4H PRN Administration PAIN LEVEL 6-10 Albuterol/Ipratropium 1 amp 05/14/18 16:12 05/14/18 17:35 Duoneb - NEB 1 amp Q6H PRN Administration SHORTNESS OF BREATH Aspirin 81 mg 05/15/18 10:00 05/18/18 10:53 Asa - PO 81 mg DAILY [facility] Administration Atorvastatin Calcium 10 mg 05/14/18 22:00 05/17/18 21:24 Lipitor - PO 10 mg HS [facility] Administration Budesonide/Formoterol Fumarate 2 puff 05/14/18 22:00 05/18/18 10:54 Symbicort 160/4.5mcg - IH 2 puff BID [facility] Administration Furosemide 40 mg 05/15/18 06:00 05/18/18 06:19 Lasix Injection - IVPUSH 40 mg BIDLASIX [facility] Administration Heparin Sodium (Porcine) 5,000 unit 05/14/18 22:00 05/18/18 10:53 Heparin - SQ 5,000 unit BID [facility] Administration Insulin Aspart 1 vial 05/14/18 16:30 05/18/18 06:22 Novolog Vial Sliding Scale - SQ Not Given ACHS [facility] Protocol Methylprednisolone Sodium Succinate 40 mg 05/18/18 18:00 Solu-Medrol - IVPUSH Q8H-IV [facility] Montelukast Sodium 10 mg 05/14/18 22:00 05/17/18 21:24 Singulair - PO 10 mg HS [facility] Administration Pantoprazole Sodium 40 mg 05/15/18 10:00 05/18/18 10:53 Protonix - PO 40 mg DAILY [facility] Administration Zolpidem Tartrate 5 mg 05/17/18 21:21 05/17/18 22:08 Ambien - PO 5 mg HS PRN Administration INSOMNIA Problem List - Problems (1) Anemia Assessment/Plan: R>anemia possibly related to vaginal bleeding from uterine fibroids >when medically cleared patient should be followed as outpatient for colonoscopy >monitor Hg daily >current Hg 8.6 >transfuse if Hg <8.0 Code(s): D64.9 - ANEMIA, UNSPECIFIED
[2018-05-18 10:13] LABS: ANISOCYTOSIS 3+; MACROCYTOSIS 0; PLATELET ESTIMATE NORMAL; TARGET CELLS 2+
--- NOTE | 2018-05-18 10:51 | PN ---
Progress Note, Physician History of Present Illness: PULMONARY ALERT,FEELING BETTER,LESS DYSPNEIC,LESS ABD DISCOMFORT - Current Medication List Current Medications: Active Medications Acetaminophen/Codeine Phosphate (Tylenol # 3 -) 1 tab PO Q4H PRN PRN Reason: PAIN LEVEL 6-10 Last Admin: 05/18/18 09:12 Dose: 1 tab Albuterol/Ipratropium (Duoneb -) 1 amp NEB Q6H PRN PRN Reason: SHORTNESS OF BREATH Last Admin: 05/14/18 17:35 Dose: 1 amp Aspirin (Asa -) 81 mg PO DAILY [facility] Last Admin: 05/17/18 09:21 Dose: 81 mg Atorvastatin Calcium (Lipitor -) 10 mg PO HS [facility] Last Admin: 05/17/18 21:24 Dose: 10 mg Budesonide/Formoterol Fumarate (Symbicort 160/4.5mcg -) 2 puff IH BID [facility] Last Admin: 05/17/18 21:33 Dose: 2 puff Furosemide (Lasix Injection -) 40 mg IVPUSH BIDLASIX [facility] Last Admin: 05/18/18 06:19 Dose: 40 mg Heparin Sodium (Porcine) (Heparin -) 5,000 unit SQ BID [facility] Last Admin: 05/17/18 21:33 Dose: 5,000 unit Insulin Aspart (Novolog Vial Sliding Scale -) 1 vial SQ ACHS [facility]; Protocol Last Admin: 05/18/18 06:22 Dose: Not Given Methylprednisolone Sodium Succinate (Solu-Medrol -) 40 mg IVPUSH Q6H-IV [facility] Last Admin: 05/18/18 03:17 Dose: 40 mg Montelukast Sodium (Singulair -) 10 mg PO HS [facility] Last Admin: 05/17/18 21:24 Dose: 10 mg Pantoprazole Sodium (Protonix -) 40 mg PO DAILY [facility] Last Admin: 05/17/18 09:21 Dose: 40 mg Zolpidem Tartrate (Ambien -) 5 mg PO HS PRN PRN Reason: INSOMNIA Last Admin: 05/17/18 22:08 Dose: 5 mg - Objective Vital Signs: Vital Signs Temperature 98.4 F 05/18/18 06:00 Pulse Rate 93 H 05/18/18 06:00 Respiratory Rate 21 H 05/18/18 06:00 Blood Pressure 116/67 05/18/18 06:00 O2 Sat by Pulse Oximetry (%) 95 05/18/18 07:54 Constitutional: Yes: Calm, Obese Eyes: Yes: WNL HENT: Yes: WNL Neck: Yes: WNL Cardiovascular: Yes: Regular Rate and Rhythm, S1, S2 Respiratory: Yes: Diminished Gastrointestinal: Yes: Normal Bowel Sounds, Soft, Other (FIBROID) Extremities: Yes: WNL Edema: Yes Labs: CBC, BMP 05/18/18 08:08 05/18/18 08:08 INR, PTT INR 1.15 (0.83-1.09) H 05/14/18 12:29 Assessment/Plan IMP ACUTE ON CHRONIC HYPOXEMIC RESPIRATORY FAILURE CLINICALLY IMPROVING COPD LIKELY CHF PULMONARY HTN FIBROIDS MARTINA TOBACCO ABUSE PLAN IV STEROIDS INHALED BRONCHODILATORS LASIX 02 DAILY WT ECHO pending NIPPV AT NIGHT AND PRN ANALGESICS DR CROOKS
[2018-05-18] MEDS: PANTOPRAZOLE 40 MG TABLET (FP) PO SCH (10:53)
[2018-05-18] MEDS: HEPARIN NA (PORCINE) 5,000 UNITS/ML 1ML VIAL SQ SCH ×2 (10:53→22:02)
[2018-05-18] MEDS: ASPIRIN 81 MG CHEWABLE TABLETS PO SCH (10:53)
[2018-05-18] MEDS: BUDESONIDE/FORMETEROL FUMARATE 160/4.5 mcg INHALER IH SCH ×2 (10:54→22:04)
--- NOTE | 2018-05-18 12:40 | PN ---
Progress Note, Physician Chief Complaint: patient seen and examined says less dyspneic and abdominal distension and leg swelling has improved - Current Medication List Current Medications: Active Medications Acetaminophen/Codeine Phosphate (Tylenol # 3 -) 1 tab PO Q4H PRN PRN Reason: PAIN LEVEL 6-10 Last Admin: 05/18/18 09:12 Dose: 1 tab Albuterol/Ipratropium (Duoneb -) 1 amp NEB Q6H PRN PRN Reason: SHORTNESS OF BREATH Last Admin: 05/14/18 17:35 Dose: 1 amp Aspirin (Asa -) 81 mg PO DAILY [facility] Last Admin: 05/18/18 10:53 Dose: 81 mg Atorvastatin Calcium (Lipitor -) 10 mg PO HS [facility] Last Admin: 05/17/18 21:24 Dose: 10 mg Budesonide/Formoterol Fumarate (Symbicort 160/4.5mcg -) 2 puff IH BID [facility] Last Admin: 05/18/18 10:54 Dose: 2 puff Furosemide (Lasix Injection -) 40 mg IVPUSH BIDLASIX [facility] Last Admin: 05/18/18 06:19 Dose: 40 mg Heparin Sodium (Porcine) (Heparin -) 5,000 unit SQ BID [facility] Last Admin: 05/18/18 10:53 Dose: 5,000 unit Insulin Aspart (Novolog Vial Sliding Scale -) 1 vial SQ ACHS [facility]; Protocol Last Admin: 05/18/18 12:16 Dose: Not Given Methylprednisolone Sodium Succinate (Solu-Medrol -) 40 mg IVPUSH Q8H-IV [facility] Montelukast Sodium (Singulair -) 10 mg PO HS [facility] Last Admin: 05/17/18 21:24 Dose: 10 mg Pantoprazole Sodium (Protonix -) 40 mg PO DAILY [facility] Last Admin: 05/18/18 10:53 Dose: 40 mg Zolpidem Tartrate (Ambien -) 5 mg PO HS PRN PRN Reason: INSOMNIA Last Admin: 05/17/18 22:08 Dose: 5 mg - Objective Vital Signs: Vital Signs Temperature 98.4 F 05/18/18 06:00 Pulse Rate 93 H 05/18/18 06:00 Respiratory Rate 21 H 05/18/18 06:00 Blood Pressure 116/67 05/18/18 06:00 O2 Sat by Pulse Oximetry (%) 95 05/18/18 07:54 Constitutional: Yes: Calm Cardiovascular: Yes: Regular Rate and Rhythm, S1, S2 Respiratory: Yes: Wheezes (scattered) Gastrointestinal: Yes: Normal Bowel Sounds, Soft Edema: Yes (improving) Neurological: Yes: Alert, Oriented Labs: CBC, BMP 05/18/18 08:08 05/18/18 08:08 INR, PTT INR 1.15 (0.83-1.09) H 05/14/18 12:29 Problem List - Problems (1) Acute hypoxemic respiratory failure Assessment/Plan: improving copd on solumderol q8h chf on iv laisx improving weight dropped from 269 to 265 echo pending Code(s): J96.01 - ACUTE RESPIRATORY FAILURE WITH HYPOXIA (2) COPD (chronic obstructive pulmonary disease) Assessment/Plan: iv medrol now q8hr oxygen bronchodilators-symbicort Code(s): J44.9 - CHRONIC OBSTRUCTIVE PULMONARY DISEASE, UNSPECIFIED (3) Fibroid Assessment/Plan: obgyn consult noted tansvaginal sono was done in march shows multiple fibroids Code(s): D21.9 - BENIGN NEOPLASM OF CONNECTIVE AND OTHER SOFT TISSUE, UNSP (4) Anemia Assessment/Plan: appreicate GI note monitor h/h transfuse in H/h< 8 Code(s): D64.9 - ANEMIA, UNSPECIFIED
[2018-05-18] MEDS ORDERED: INSULIN (NOVOLOG) ASPART 100 UNITS/ML 10ML VIAL ONE (20:58)
[2018-05-18] MEDS: MONTELUKAST NA 10 MG TABLET PO SCH (22:03)
[2018-05-18] MEDS: ATORVASTATIN CA 10 MG TABLET (FP) PO SCH (22:03)
[2018-05-18] MEDS: ZOLPIDEM TARTRATE 5 MG TABLET PO PRN (22:03)
[2018-05-19] MEDS: INSULIN SLIDING SCALE (NOVOLOG) 1 VIAL SQ SCH ×5 (00:39→21:41)
[2018-05-19] MEDS: methylPREDNISolone NA SUCC 40 MG/1 ML VIAL IVPUSH SCH ×3 (01:11→21:37)
[2018-05-19] MEDS: FUROSEMIDE 40 MG/4 ML INJECTABLE VIAL IVPUSH SCH ×2 (06:16→14:16)
[2018-05-19 07:55] LABS: BASO % 0.1 % (0-2.0); HEMATOCRIT 28.4 % (32.4-45.2); LYMPH % 11.7 % (8-40); MCH 20.6 pg (25.7-33.7); MCHC 31.7 g/dl (32.0-36.0); MEAN CELL VOLUME 65.1 fl (80-96); MEAN PLT VOLUME 8.7 fl (7.5-11.1); NEUT % 83.2 % (42.8-82.8); PLATELET COUNT 237 K/MM3 (134-434); RBC 4.36 M/mm3 (3.60-5.2); RDW 18.6 % (11.6-15.6); WHITE BLOOD COUNT 11.7 K/mm3 (4.0-10.0)
[2018-05-19 08:14] LABS: ALBUMIN 2.9 g/dl (3.4-5.0); ALK PHOS 85 U/L (45-117); ANION GAP 6 MMOL/L (8-16); BILIRUBIN,TOTAL 0.6 mg/dL (0.2-1); BLOOD UREA NITROGEN 27 mg/dL (7-18); CALCIUM 8.6 mg/dL (8.5-10.1); CHLORIDE 94 mmol/L (98-107); CO2 36 mmol/L (21-32); CREATININE 0.8 mg/dL (0.55-1.3); GLUCOSE,RANDOM 118 mg/dL (74-106); POTASSIUM 4.4 mmol/L (3.5-5.1); SGOT/AST 14 U/L (15-37); SGPT/ALT 26 U/L (13-61); SODIUM 136 mmol/L (136-145); TOT PROT 7.3 g/dl (6.4-8.2)
[2018-05-19] MEDS ORDERED: PT OWN MED DRAWER 7, Y5N ONE (09:06)
[2018-05-19] MEDS: PANTOPRAZOLE 40 MG TABLET (FP) PO SCH (09:11)
[2018-05-19] MEDS: ASPIRIN 81 MG CHEWABLE TABLETS PO SCH (09:11)
[2018-05-19] MEDS: HEPARIN NA (PORCINE) 5,000 UNITS/ML 1ML VIAL SQ SCH ×2 (09:12→21:36)
[2018-05-19] MEDS: BUDESONIDE/FORMETEROL FUMARATE 160/4.5 mcg INHALER IH SCH ×2 (09:12→21:41)
[2018-05-19] MEDS: ACETAMINOPHEN WITH CODEINE 300MG/30MG TABLET PO PRN ×3 (09:20→21:52)
--- NOTE | 2018-05-19 10:02 | PN ---
Progress Note, Physician - Current Medication List Current Medications: Active Medications Acetaminophen/Codeine Phosphate (Tylenol # 3 -) 1 tab PO Q4H PRN PRN Reason: PAIN LEVEL 6-10 Last Admin: 05/19/18 09:20 Dose: 1 tab Albuterol/Ipratropium (Duoneb -) 1 amp NEB Q6H PRN PRN Reason: SHORTNESS OF BREATH Last Admin: 05/14/18 17:35 Dose: 1 amp Aspirin (Asa -) 81 mg PO DAILY [facility] Last Admin: 05/19/18 09:11 Dose: 81 mg Atorvastatin Calcium (Lipitor -) 10 mg PO HS [facility] Last Admin: 05/18/18 22:03 Dose: 10 mg Budesonide/Formoterol Fumarate (Symbicort 160/4.5mcg -) 2 puff IH BID [facility] Last Admin: 05/19/18 09:12 Dose: 2 puff Furosemide (Lasix Injection -) 40 mg IVPUSH BIDLASIX [facility] Last Admin: 05/19/18 06:16 Dose: 40 mg Heparin Sodium (Porcine) (Heparin -) 5,000 unit SQ BID [facility] Last Admin: 05/19/18 09:12 Dose: 5,000 unit Insulin Aspart (Novolog Vial Sliding Scale -) 1 vial SQ ACHS [facility]; Protocol Last Admin: 05/19/18 06:16 Dose: Not Given Methylprednisolone Sodium Succinate (Solu-Medrol -) 40 mg IVPUSH Q8H-IV [facility] Last Admin: 05/19/18 09:11 Dose: 40 mg Montelukast Sodium (Singulair -) 10 mg PO HS [facility] Last Admin: 05/18/18 22:03 Dose: 10 mg Pantoprazole Sodium (Protonix -) 40 mg PO DAILY [facility] Last Admin: 05/19/18 09:11 Dose: 40 mg Zolpidem Tartrate (Ambien -) 5 mg PO HS PRN PRN Reason: INSOMNIA Last Admin: 05/18/18 22:03 Dose: 5 mg - Objective Vital Signs: Vital Signs Temperature 98.2 F 05/19/18 08:20 Pulse Rate 88 05/19/18 08:20 Respiratory Rate 20 05/19/18 08:23 Blood Pressure 124/62 05/19/18 08:20 O2 Sat by Pulse Oximetry (%) 96 05/19/18 08:23 Cardiovascular: Yes: S1, S2 Respiratory: Yes: Regular, CTA Bilaterally Gastrointestinal: Yes: Normal Bowel Sounds, Soft Edema: Yes Labs: CBC, BMP 05/19/18 05:50 05/19/18 05:50 INR, PTT INR 1.15 (0.83-1.09) H 05/14/18 12:29 Problem List - Problems (1) COPD (chronic obstructive pulmonary disease) Assessment/Plan: -IV STEROIDS--taper NEBS PULM ON BOARD Code(s): J44.9 - CHRONIC OBSTRUCTIVE PULMONARY DISEASE, UNSPECIFIED (2) CHF (congestive heart failure) Assessment/Plan: IV LASIX CARDIO ON BOARD FOLLOW LABS CXR Code(s): I50.9 - HEART FAILURE, UNSPECIFIED (3) Acute hypoxemic respiratory failure Assessment/Plan: DUE TO COPD/CHF Code(s): J96.01 - ACUTE RESPIRATORY FAILURE WITH HYPOXIA (4) Fibroid Assessment/Plan: CALL TAKER CONSULT NOTED OUTPATIENT FOLLOW UP--D/W PT Code(s): D21.9 - BENIGN NEOPLASM OF CONNECTIVE AND OTHER SOFT TISSUE, UNSP (5) DM (diabetes mellitus) Assessment/Plan: BGM Code(s): E11.9 - TYPE 2 DIABETES MELLITUS WITHOUT COMPLICATIONS Qualifiers: Diabetes mellitus type: type 2 (6) Anemia Code(s): D64.9 - ANEMIA, UNSPECIFIED
--- NOTE | 2018-05-19 12:11 | PN ---
Progress Note (short form) - Note Progress Note: PULMONARY Breathing slowly improving. +nonproductive cough. No chest pain. Leg swelling improving. Vital Signs Period Temp Pulse Resp BP Sys/Cao Pulse Ox Last 24 Hr 98.0 F-98.8 F 77-95 18-22 94-131/43-71 95-96 Intake & Output 05/16/18 05/17/18 05/18/18 05/19/18 22:59 23:59 23:59 23:59 Intake Total 970 Output Total Balance 970 Weight 120.474 kg 118.115 kg Gen: tachypneic with ambulating Heart: RRR Lung: distant breath sounds Abd: soft, obese, nontender Ext: + edema CBC, BMP 05/19/18 05:50 05/19/18 05:50 Active Medications Acetaminophen/Codeine Phosphate (Tylenol # 3 -) 1 tab PO Q4H PRN PRN Reason: PAIN LEVEL 6-10 Last Admin: 05/19/18 09:20 Dose: 1 tab Albuterol/Ipratropium (Duoneb -) 1 amp NEB Q6H PRN PRN Reason: SHORTNESS OF BREATH Last Admin: 05/14/18 17:35 Dose: 1 amp Aspirin (Asa -) 81 mg PO DAILY [facility] Last Admin: 05/19/18 09:11 Dose: 81 mg Atorvastatin Calcium (Lipitor -) 10 mg PO HS [facility] Last Admin: 05/18/18 22:03 Dose: 10 mg Budesonide/Formoterol Fumarate (Symbicort 160/4.5mcg -) 2 puff IH BID [facility] Last Admin: 05/19/18 09:12 Dose: 2 puff Furosemide (Lasix Injection -) 40 mg IVPUSH BIDLASIX [facility] Last Admin: 05/19/18 06:16 Dose: 40 mg Heparin Sodium (Porcine) (Heparin -) 5,000 unit SQ BID [facility] Last Admin: 05/19/18 09:12 Dose: 5,000 unit Insulin Aspart (Novolog Vial Sliding Scale -) 1 vial SQ ACHS [facility]; Protocol Last Admin: 05/19/18 11:23 Dose: Not Given Methylprednisolone Sodium Succinate (Solu-Medrol -) 40 mg IVPUSH BID [facility] Montelukast Sodium (Singulair -) 10 mg PO HS [facility] Last Admin: 05/18/18 22:03 Dose: 10 mg Pantoprazole Sodium (Protonix -) 40 mg PO DAILY [facility] Last Admin: 05/19/18 09:11 Dose: 40 mg Zolpidem Tartrate (Ambien -) 5 mg PO HS PRN PRN Reason: INSOMNIA Last Admin: 05/18/18 22:03 Dose: 5 mg A/P Acute on Chronic Hypoxic Respiratory Failure Acute COPD Exacerbation Right Heart Failure/Pulmonary HTN Morbid Obesity Likely MARTINA/OHS Smoker - continue medrol at current dose - inhaled bronchodilators - continue lasix - monitor urine output, creatinine - daily weights - O2 to keep Spo2 >90% - BiPAP at night and PRN during day - DVT prophylaxis
--- NOTE | 2018-05-19 16:52 | ECHO ---
Name: PATRICK SUTTON Exam:Adult Echocardiogram Study Date: 05/19/2018 11:05 AM Age: 62 yrs Reason For Study: lv fn Height: 61 in Weight: 265 lb BSA: 2.1 m2 MMode/2D Measurements & Calculations RVDd: 3.3 cm Ao root diam: 3.1 cm IVSd: 0.82 cm LA dimension: 3.6 cm LVIDd: 4.4 cm ACS: 1.9 cm LVIDs: 2.5 cm LVPWd: 0.94 cm IVSs: 0.69 cm LVPWs: 1.6 cm EDV(Teich): 87.7 ml ESV(Teich): 21.7 ml Doppler Measurements & Calculations MV E max oumar: 106.6 cm/sec Ao V2 max: 177.1 cm/sec MV A max oumar: 82.2 cm/sec Ao max P.5 mmHg MV E/A: 1.3 Ao V2 mean: 123.1 cm/sec Ao mean P.6 mmHg Ao V2 VTI: 36.0 cm TR max oumar: 331.2 cm/sec Med Peak E' Oumar: 6.0 cm/sec TR max P.9 mmHg Med E/e': 17.6 Lat Peak E' Oumar: 8.1 cm/sec Lat E/e': 13.2 Procedure The study was technically difficult with many images being suboptimal in quality. Left Ventricle The left ventricle is grossly normal size. Left ventricular systolic function is grossly normal. Ejec tion Fraction = 60%. E/A reversal consistent with but not diagnostic of poor LV compliance. Right Ventricle The right ventricle is not well visualized. Atria Normal left and right atrial size and function. Mitral Valve The mitral valve is not well visualized. Tricuspid Valve The tricuspid valve is not well visualized, but is grossly normal. There was insufficient TR detected to calculate RV systolic pressure. Aortic Valve The aortic valve is not well visualized. No hemodynamically significant valvular aortic stenosis. Pulmonic Valve The pulmonic valve is not well visualized. Great Vessels The aortic root is not well visualized. Pericardium/Pleura There is no pericardial effusion. Interpretation Summary The study was technically difficult with many images being suboptimal in quality. The left ventricle is grossly normal size. Left ventricular systolic function is grossly normal. The right ventricle is not well visualized. Normal left and right atrial size and function. The aortic valve is not well visualized. No hemodynamically significant valvular aortic stenosis. The mitral valve is not well visualized. The tricuspid valve is not well visualized, but is grossly normal. MD Polly Hannah 05/19/2018 04:52 PM
[2018-05-19] MEDS: ATORVASTATIN CA 10 MG TABLET (FP) PO SCH (21:36)
[2018-05-19] MEDS: MONTELUKAST NA 10 MG TABLET PO SCH (21:37)
[2018-05-19] MEDS: ZOLPIDEM TARTRATE 5 MG TABLET PO PRN (21:52)
[2018-05-20] MEDS: INSULIN SLIDING SCALE (NOVOLOG) 1 VIAL SQ SCH ×4 (06:37→22:03)
[2018-05-20] MEDS: FUROSEMIDE 40 MG/4 ML INJECTABLE VIAL IVPUSH SCH (06:37)
[2018-05-20 07:25] LABS: BASO % 0.1 % (0-2.0); HEMATOCRIT 27.4 % (32.4-45.2); HEMOGLOBIN 8.7 GM/dL (10.7-15.3); LYMPH % 8.1 % (8-40); MCH 21.1 pg (25.7-33.7); MCHC 31.9 g/dl (32.0-36.0); MEAN PLT VOLUME 8.5 fl (7.5-11.1); MONO % 6.9 % (3.8-10.2); NEUT % 84.9 % (42.8-82.8); PLATELET COUNT 251 K/MM3 (134-434); RBC 4.15 M/mm3 (3.60-5.2); RDW 18.8 % (11.6-15.6); WHITE BLOOD COUNT 13.3 K/mm3 (4.0-10.0)
[2018-05-20 07:48] LABS: ANION GAP 5 MMOL/L (8-16); BLOOD UREA NITROGEN 26 mg/dL (7-18); CALCIUM 8.2 mg/dL (8.5-10.1); CHLORIDE 95 mmol/L (98-107); CO2 36 mmol/L (21-32); CREATININE 0.7 mg/dL (0.55-1.3); GLUCOSE,RANDOM 110 mg/dL (74-106); MAGNESIUM 2.4 mg/dL (1.8-2.4); PHOSPHOROUS 4.2 mg/dL (2.5-4.9); POTASSIUM 4.5 mmol/L (3.5-5.1); SODIUM 136 mmol/L (136-145)
[2018-05-20] MEDS: ACETAMINOPHEN WITH CODEINE 300MG/30MG TABLET PO PRN ×4 (08:55→23:58)
[2018-05-20] MEDS: methylPREDNISolone NA SUCC 40 MG/1 ML VIAL IVPUSH SCH (09:10)
[2018-05-20] MEDS: PANTOPRAZOLE 40 MG TABLET (FP) PO SCH (09:10)
[2018-05-20] MEDS: HEPARIN NA (PORCINE) 5,000 UNITS/ML 1ML VIAL SQ SCH ×2 (09:10→21:52)
[2018-05-20] MEDS: BUDESONIDE/FORMETEROL FUMARATE 160/4.5 mcg INHALER IH SCH ×2 (09:11→21:58)
[2018-05-20] MEDS ORDERED: PT OWN MED DRAWER 7, Y5N ONE (09:13)
[2018-05-20] MEDS: ASPIRIN 81 MG CHEWABLE TABLETS PO SCH (09:14)
--- NOTE | 2018-05-20 10:02 | PN ---
Progress Note, Physician - Current Medication List Current Medications: Active Medications Acetaminophen/Codeine Phosphate (Tylenol # 3 -) 1 tab PO Q4H PRN PRN Reason: PAIN LEVEL 6-10 Last Admin: 05/20/18 08:55 Dose: 1 tab Albuterol/Ipratropium (Duoneb -) 1 amp NEB Q6H PRN PRN Reason: SHORTNESS OF BREATH Last Admin: 05/14/18 17:35 Dose: 1 amp Aspirin (Asa -) 81 mg PO DAILY [facility] Last Admin: 05/20/18 09:14 Dose: 81 mg Atorvastatin Calcium (Lipitor -) 10 mg PO HS [facility] Last Admin: 05/19/18 21:36 Dose: 10 mg Budesonide/Formoterol Fumarate (Symbicort 160/4.5mcg -) 2 puff IH BID [facility] Last Admin: 05/20/18 09:11 Dose: 2 puff Furosemide (Lasix Injection -) 40 mg IVPUSH BIDLASIX [facility] Last Admin: 05/20/18 06:37 Dose: 40 mg Heparin Sodium (Porcine) (Heparin -) 5,000 unit SQ BID [facility] Last Admin: 05/20/18 09:10 Dose: 5,000 unit Insulin Aspart (Novolog Vial Sliding Scale -) 1 vial SQ [facility]; Protocol Last Admin: 05/20/18 06:37 Dose: Not Given Methylprednisolone Sodium Succinate (Solu-Medrol -) 40 mg IVPUSH BID [facility] Last Admin: 05/20/18 09:10 Dose: 40 mg Montelukast Sodium (Singulair -) 10 mg PO HS [facility] Last Admin: 05/19/18 21:37 Dose: 10 mg Pantoprazole Sodium (Protonix -) 40 mg PO DAILY [facility] Last Admin: 05/20/18 09:10 Dose: 40 mg Zolpidem Tartrate (Ambien -) 5 mg PO HS PRN PRN Reason: INSOMNIA Last Admin: 05/19/18 21:52 Dose: 5 mg - Objective Vital Signs: Vital Signs Temperature 97.8 F 05/20/18 08:02 Pulse Rate 89 05/20/18 08:02 Respiratory Rate 20 05/20/18 08:04 Blood Pressure 120/62 05/20/18 08:02 O2 Sat by Pulse Oximetry (%) 97 05/20/18 08:04 Cardiovascular: Yes: S1, S2 Respiratory: Yes: Regular, CTA Bilaterally, On Nasal O2 Gastrointestinal: Yes: Normal Bowel Sounds, Soft Labs: CBC, BMP 05/20/18 06:40 05/20/18 06:40 INR, PTT INR 1.15 (0.83-1.09) H 05/14/18 12:29 Problem List - Problems (1) COPD (chronic obstructive pulmonary disease) Assessment/Plan: -IV STEROIDS--taper NEBS PULM ON BOARD Code(s): J44.9 - CHRONIC OBSTRUCTIVE PULMONARY DISEASE, UNSPECIFIED (2) CHF (congestive heart failure) Assessment/Plan: IV LASIX--to po CARDIO ON BOARD FOLLOW LABS CXR Code(s): I50.9 - HEART FAILURE, UNSPECIFIED (3) Acute hypoxemic respiratory failure Assessment/Plan: DUE TO COPD/CHF IMPROVED Code(s): J96.01 - ACUTE RESPIRATORY FAILURE WITH HYPOXIA (4) Fibroid Assessment/Plan: 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
--- NOTE | 2018-05-20 10:32 | PN ---
Progress Note, Physician History of Present Illness: pulmonary alert,comfortable at rest + han,less cough - Current Medication List Current Medications: Active Medications Acetaminophen/Codeine Phosphate (Tylenol # 3 -) 1 tab PO Q4H PRN PRN Reason: PAIN LEVEL 6-10 Last Admin: 05/20/18 08:55 Dose: 1 tab Albuterol/Ipratropium (Duoneb -) 1 amp NEB Q6H PRN PRN Reason: SHORTNESS OF BREATH Last Admin: 05/14/18 17:35 Dose: 1 amp Aspirin (Asa -) 81 mg PO DAILY [facility] Last Admin: 05/20/18 09:14 Dose: 81 mg Atorvastatin Calcium (Lipitor -) 10 mg PO HS [facility] Last Admin: 05/19/18 21:36 Dose: 10 mg Budesonide/Formoterol Fumarate (Symbicort 160/4.5mcg -) 2 puff IH BID [facility] Last Admin: 05/20/18 09:11 Dose: 2 puff Furosemide (Lasix Injection -) 40 mg IVPUSH BIDLASIX [facility] Last Admin: 05/20/18 06:37 Dose: 40 mg Heparin Sodium (Porcine) (Heparin -) 5,000 unit SQ BID [facility] Last Admin: 05/20/18 09:10 Dose: 5,000 unit Insulin Aspart (Novolog Vial Sliding Scale -) [address] [facility]; Protocol Last Admin: 05/20/18 06:37 Dose: Not Given Methylprednisolone Sodium Succinate (Solu-Medrol -) 40 mg IVPUSH BID [facility] Last Admin: 05/20/18 09:10 Dose: 40 mg Montelukast Sodium (Singulair -) 10 mg PO HS [facility] Last Admin: 05/19/18 21:37 Dose: 10 mg Pantoprazole Sodium (Protonix -) 40 mg PO DAILY [facility] Last Admin: 05/20/18 09:10 Dose: 40 mg Zolpidem Tartrate (Ambien -) 5 mg PO HS PRN PRN Reason: INSOMNIA Last Admin: 05/19/18 21:52 Dose: 5 mg - Objective Vital Signs: Vital Signs Temperature 97.8 F 05/20/18 08:02 Pulse Rate 89 05/20/18 08:02 Respiratory Rate 20 05/20/18 08:04 Blood Pressure 120/62 05/20/18 08:02 O2 Sat by Pulse Oximetry (%) 97 05/20/18 08:04 Constitutional: Yes: Well Nourished, Calm, Obese Eyes: Yes: WNL HENT: Yes: WNL Neck: Yes: WNL Cardiovascular: Yes: Regular Rate and Rhythm, S1, S2 Respiratory: Yes: Diminished Gastrointestinal: Yes: Normal Bowel Sounds, Soft Extremities: Yes: WNL Edema: Yes Labs: CBC, BMP 05/20/18 06:40 05/20/18 06:40 INR, PTT INR 1.15 (0.83-1.09) H 05/14/18 12:29 Assessment/Plan IMP ACUTE ON CHRONIC HYPOXEMIC RESPIRATORY FAILURE CLINICALLY IMPROVING COPD LIKELY CHF PULMONARY HTN FIBROIDS MARTINA TOBACCO ABUSE PLAN CONTINUE IV STEROIDS INHALED BRONCHODILATORS LASIX 02 DAILY WT NIPPV AT NIGHT AND PRN ANALGESICS DR CROOKS
--- NOTE | 2018-05-20 12:27 | EKG ---
Test Reason : Blood Pressure : / mmHG Vent. Rate : 076 BPM Atrial Rate : 076 BPM P-R Int : 132 ms QRS Dur : 106 ms QT Int : 390 ms P-R-T Axes : 027 007 014 degrees QTc Int : 438 ms POOR DATA QUALITY, INTERPRETATION MAY BE ADVERSELY AFFECTED NORMAL SINUS RHYTHM WITH SINUS ARRHYTHMIA INCOMPLETE LEFT BUNDLE BRANCH BLOCK T WAVE ABNORMALITY, CONSIDER ANTERIOR ISCHEMIA ABNORMAL ECG WHEN COMPARED WITH ECG OF 14-MAY-2018 18:16, QRS DURATION HAS INCREASED NON-SPECIFIC CHANGE IN ST SEGMENT IN INFERIOR LEADS T WAVE INVERSION NOW EVIDENT IN ANTERIOR LEADS Confirmed by ROBYN JAMES, RIKKI ([id number]) on 05/20/2018 12:27:32 PM Referred By: Confirmed By:RIKKI CARLSON MD
[2018-05-20] MEDS: FUROSEMIDE 40 MG TABLET (FP) PO SCH (14:35)
[2018-05-20] MEDS: ALBUTEROL SO4 2.5/IPRATROPIUM 0.5 INH SOL 3 ML VIAL.NEB. NEB SCH ×2 (16:28→20:52)
[2018-05-20] MEDS: ATORVASTATIN CA 10 MG TABLET (FP) PO SCH (21:52)
[2018-05-20] MEDS: MONTELUKAST NA 10 MG TABLET PO SCH (21:52)
[2018-05-20] MEDS: predniSONE 10 MG TABLET (UD) PO SCH (21:53)
[2018-05-21] MEDS: ZOLPIDEM TARTRATE 5 MG TABLET PO PRN ×2 (00:02→21:58)
[2018-05-21] MEDS: ACETAMINOPHEN WITH CODEINE 300MG/30MG TABLET PO PRN ×4 (04:04→21:20)
[2018-05-21] MEDS: FUROSEMIDE 40 MG TABLET (FP) PO SCH ×2 (06:23→14:47)
[2018-05-21] MEDS: INSULIN SLIDING SCALE (NOVOLOG) 1 VIAL SQ SCH ×4 (06:26→21:56)
[2018-05-21] MEDS: ALBUTEROL SO4 2.5/IPRATROPIUM 0.5 INH SOL 3 ML VIAL.NEB. NEB SCH ×4 (07:20→20:48)
[2018-05-21] MEDS: ASPIRIN 81 MG CHEWABLE TABLETS PO SCH (09:06)
[2018-05-21] MEDS: PANTOPRAZOLE 40 MG TABLET (FP) PO SCH (09:06)
[2018-05-21] MEDS: predniSONE 10 MG TABLET (UD) PO SCH ×2 (09:06→21:53)
[2018-05-21] MEDS: HEPARIN NA (PORCINE) 5,000 UNITS/ML 1ML VIAL SQ SCH ×2 (09:06→21:56)
[2018-05-21] MEDS: BUDESONIDE/FORMETEROL FUMARATE 160/4.5 mcg INHALER IH SCH ×2 (09:08→21:56)
--- NOTE | 2018-05-21 11:54 | PN ---
Progress Note (short form) - Note Progress Note: PULMONARY Breathing slowly improving. +nonproductive cough. No chest pain. Leg swelling improving. Vital Signs Period Temp Pulse Resp BP Sys/Cao Pulse Ox Last 24 Hr 97.4 F-99.1 F 85-97 18-20 113-135/60-71 90-96 Gen: less tachypneic Heart: RRR Lung: distant breath sounds Abd: soft, obese, nontender Ext: + edema CBC, BMP 05/20/18 06:40 05/20/18 06:40 Active Medications Acetaminophen/Codeine Phosphate (Tylenol # 3 -) 1 tab PO Q4H PRN PRN Reason: PAIN LEVEL 6-10 Last Admin: 05/21/18 08:15 Dose: 1 tab Albuterol/Ipratropium (Duoneb -) 1 amp NEB RQID [facility] Last Admin: 05/21/18 11:35 Dose: 1 amp Aspirin (Asa -) 81 mg PO DAILY [facility] Last Admin: 05/21/18 09:06 Dose: 81 mg Atorvastatin Calcium (Lipitor -) 10 mg PO HS [facility] Last Admin: 05/20/18 21:52 Dose: 10 mg Budesonide/Formoterol Fumarate (Symbicort 160/4.5mcg -) 2 puff IH BID [facility] Last Admin: 05/21/18 09:08 Dose: 2 puff Furosemide (Lasix -) 60 mg PO BID@0600,1400 [facility] Last Admin: 05/21/18 06:23 Dose: 60 mg Heparin Sodium (Porcine) (Heparin -) 5,000 unit SQ BID [facility] Last Admin: 05/21/18 09:06 Dose: 5,000 unit Insulin Aspart (Novolog Vial Sliding Scale -) 1 vial SQ ACHS [facility]; Protocol Last Admin: 05/21/18 11:30 Dose: Not Given Montelukast Sodium (Singulair -) 10 mg PO HS [facility] Last Admin: 05/20/18 21:52 Dose: 10 mg Pantoprazole Sodium (Protonix -) 40 mg PO DAILY [facility] Last Admin: 05/21/18 09:06 Dose: 40 mg Prednisone (Deltasone -) 30 mg PO BID [facility] Last Admin: 05/21/18 09:06 Dose: 30 mg Zolpidem Tartrate (Ambien -) 5 mg PO HS PRN PRN Reason: INSOMNIA Last Admin: 05/21/18 00:02 Dose: 5 mg A/P Acute on Chronic Hypoxic Respiratory Failure Acute COPD Exacerbation Right Heart Failure/Pulmonary HTN Morbid Obesity Likely MARTINA/OHS Smoker - continue medrol at current dose - inhaled bronchodilators - continue lasix - monitor urine output, creatinine - daily weights - O2 to keep Spo2 >90% - BiPAP at night and PRN during day - DVT prophylaxis
--- NOTE | 2018-05-21 12:20 | PN ---
Progress Note, Physician Chief Complaint: patient seen and examined says she is tired didnot get much sleep at night breathing and leg swelling is improving - Current Medication List Current Medications: Active Medications Acetaminophen/Codeine Phosphate (Tylenol # 3 -) 1 tab PO Q4H PRN PRN Reason: PAIN LEVEL 6-10 Last Admin: 05/21/18 08:15 Dose: 1 tab Albuterol/Ipratropium (Duoneb -) 1 amp NEB RQID [facility] Last Admin: 05/21/18 11:35 Dose: 1 amp Aspirin (Asa -) 81 mg PO DAILY [facility] Last Admin: 05/21/18 09:06 Dose: 81 mg Atorvastatin Calcium (Lipitor -) 10 mg PO HS [facility] Last Admin: 05/20/18 21:52 Dose: 10 mg Budesonide/Formoterol Fumarate (Symbicort 160/4.5mcg -) 2 puff IH BID [facility] Last Admin: 05/21/18 09:08 Dose: 2 puff Furosemide (Lasix -) 60 mg PO BID@0600,1400 [facility] Last Admin: 05/21/18 06:23 Dose: 60 mg Heparin Sodium (Porcine) (Heparin -) 5,000 unit SQ BID [facility] Last Admin: 05/21/18 09:06 Dose: 5,000 unit Insulin Aspart (Novolog Vial Sliding Scale -) [address] [facility]; Protocol Last Admin: 05/21/18 11:30 Dose: Not Given Montelukast Sodium (Singulair -) 10 mg PO HS [facility] Last Admin: 05/20/18 21:52 Dose: 10 mg Pantoprazole Sodium (Protonix -) 40 mg PO DAILY [facility] Last Admin: 05/21/18 09:06 Dose: 40 mg Prednisone (Deltasone -) 30 mg PO BID [facility] Last Admin: 05/21/18 09:06 Dose: 30 mg Zolpidem Tartrate (Ambien -) 5 mg PO HS PRN PRN Reason: INSOMNIA Last Admin: 05/21/18 00:02 Dose: 5 mg - Objective Vital Signs: Vital Signs Temperature 97.4 F L 05/21/18 08:33 Pulse Rate 97 H 05/21/18 08:33 Respiratory Rate 18 05/21/18 08:35 Blood Pressure 128/63 05/21/18 08:33 O2 Sat by Pulse Oximetry (%) 96 05/21/18 08:35 Constitutional: Yes: Calm Cardiovascular: Yes: Regular Rate and Rhythm, S1, S2 Respiratory: Yes: CTA Bilaterally Gastrointestinal: Yes: Normal Bowel Sounds, Soft Edema: Yes (improving) Neurological: Yes: Alert, Oriented Labs: CBC, BMP 05/20/18 06:40 05/20/18 06:40 INR, PTT INR 1.15 (0.83-1.09) H 05/14/18 12:29 Problem List - Problems (1) Acute hypoxemic respiratory failure Assessment/Plan: improving on po prednisone and po lasix bid bipap at night and as needed in day weight dropped from 269 to 265 to 261 echo left ventricle is normal and function normal Code(s): J96.01 - ACUTE RESPIRATORY FAILURE WITH HYPOXIA (2) COPD (chronic obstructive pulmonary disease) Assessment/Plan: iv medrol now po prednisone oxygen bronchodilators-symbicort Code(s): J44.9 - CHRONIC OBSTRUCTIVE PULMONARY DISEASE, UNSPECIFIED (3) Fibroid Assessment/Plan: obgyn consult noted tansvaginal sono was done in march shows multiple fibroids Code(s): D21.9 - BENIGN NEOPLASM OF CONNECTIVE AND OTHER SOFT TISSUE, UNSP (4) Anemia Assessment/Plan: appreicate GI note monitor h/h transfuse in H/h< 8 Code(s): D64.9 - ANEMIA, UNSPECIFIED (5) CHF (congestive heart failure) Assessment/Plan: lasix 60mg po bid Code(s): I50.9 - HEART FAILURE, UNSPECIFIED Qualifiers: Heart failure type: right-sided
[2018-05-21] MEDS: ATORVASTATIN CA 10 MG TABLET (FP) PO SCH (21:56)
[2018-05-21] MEDS: MONTELUKAST NA 10 MG TABLET PO SCH (21:56)
[2018-05-22] MEDS: ACETAMINOPHEN WITH CODEINE 300MG/30MG TABLET PO PRN ×3 (06:26→20:04)
[2018-05-22] MEDS: FUROSEMIDE 40 MG TABLET (FP) PO SCH ×2 (06:27→15:23)
[2018-05-22] MEDS: INSULIN SLIDING SCALE (NOVOLOG) 1 VIAL SQ SCH ×4 (06:28→21:30)
[2018-05-22] MEDS: ALBUTEROL SO4 2.5/IPRATROPIUM 0.5 INH SOL 3 ML VIAL.NEB. NEB SCH ×4 (07:40→16:03)
[2018-05-22] MEDS: BUDESONIDE/FORMETEROL FUMARATE 160/4.5 mcg INHALER IH SCH ×2 (11:08→21:27)
[2018-05-22] MEDS: HEPARIN NA (PORCINE) 5,000 UNITS/ML 1ML VIAL SQ SCH ×2 (11:08→21:26)
[2018-05-22] MEDS: PANTOPRAZOLE 40 MG TABLET (FP) PO SCH (11:08)
[2018-05-22] MEDS: predniSONE 10 MG TABLET (UD) PO SCH ×2 (11:08→21:25)
[2018-05-22] MEDS: ASPIRIN 81 MG CHEWABLE TABLETS PO SCH (11:08)
--- NOTE | 2018-05-22 14:23 | PN ---
Progress Note (short form) - Note Progress Note: Breathing slowly continues to improve. Some non-productive cough. No CP. NIPPV overnight. Vital Signs Period Temp Pulse Resp BP Sys/Cao Pulse Ox Last 24 Hr 97.4 F-99.1 F 85-97 18-20 113-135/60-71 90-96 Last Vital Signs Temp Pulse Resp BP Pulse Ox 98 F 116 H 22 H 140/58 L 96 05/22/18 09:00 05/22/18 09:00 05/22/18 09:00 05/22/18 09:00 05/22/18 11:51 Active Medications Acetaminophen/Codeine Phosphate (Tylenol # 3 -) 1 tab PO Q4H PRN PRN Reason: PAIN LEVEL 6-10 Last Admin: 05/22/18 12:25 Dose: 1 tab Albuterol/Ipratropium (Duoneb -) 1 amp NEB RQID [facility] Last Admin: 05/22/18 11:50 Dose: 1 amp Aspirin (Asa -) 81 mg PO DAILY [facility] Last Admin: 05/22/18 11:08 Dose: 81 mg Atorvastatin Calcium (Lipitor -) 10 mg PO HS [facility] Last Admin: 05/21/18 21:56 Dose: 10 mg Budesonide/Formoterol Fumarate (Symbicort 160/4.5mcg -) 2 puff IH BID [facility] Last Admin: 05/22/18 11:08 Dose: 2 puff Furosemide (Lasix -) 60 mg PO BID@0600,1400 [facility] Last Admin: 05/22/18 06:27 Dose: 60 mg Heparin Sodium (Porcine) (Heparin -) 5,000 unit SQ BID [facility] Last Admin: 05/22/18 11:08 Dose: 5,000 unit Insulin Aspart (Novolog Vial Sliding Scale -) 1 vial SQ ACHS [facility]; Protocol Last Admin: 05/22/18 12:26 Dose: Not Given Montelukast Sodium (Singulair -) 10 mg PO HS [facility] Last Admin: 05/21/18 21:56 Dose: 10 mg Pantoprazole Sodium (Protonix -) 40 mg PO DAILY [facility] Last Admin: 05/22/18 11:08 Dose: 40 mg Prednisone (Deltasone -) 30 mg PO BID [facility] Last Admin: 05/22/18 11:08 Dose: 30 mg Zolpidem Tartrate (Ambien -) 5 mg PO HS PRN PRN Reason: INSOMNIA Last Admin: 05/21/18 21:58 Dose: 5 mg Gen: less tachypneic Heart: RRR Lung: distant breath sounds Abd: soft, obese, nontender Ext: + edema Laboratory Results - last 24 hr 05/21/18 05/21/18 05/22/18 17:20 21:51 06:21 POC Glucometer 190 136 159 05/22/18 12:10 POC Glucometer 93 A/P Acute on Chronic Hypoxic Respiratory Failure Acute COPD Exacerbation Right Heart Failure/Pulmonary HTN Morbid Obesity 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
--- NOTE | 2018-05-22 14:42 | PN ---
Progress Note, Physician Chief Complaint: patient seen and examined NIPPV at night - Current Medication List Current Medications: Active Medications Acetaminophen/Codeine Phosphate (Tylenol # 3 -) 1 tab PO Q4H PRN PRN Reason: PAIN LEVEL 6-10 Last Admin: 05/22/18 12:25 Dose: 1 tab Albuterol/Ipratropium (Duoneb -) 1 amp NEB RQID [facility] Last Admin: 05/22/18 11:50 Dose: 1 amp Aspirin (Asa -) 81 mg PO DAILY [facility] Last Admin: 05/22/18 11:08 Dose: 81 mg Atorvastatin Calcium (Lipitor -) 10 mg PO HS [facility] Last Admin: 05/21/18 21:56 Dose: 10 mg Budesonide/Formoterol Fumarate (Symbicort 160/4.5mcg -) 2 puff IH BID [facility] Last Admin: 05/22/18 11:08 Dose: 2 puff Furosemide (Lasix -) 60 mg PO BID@0600,1400 [facility] Last Admin: 05/22/18 06:27 Dose: 60 mg Heparin Sodium (Porcine) (Heparin -) 5,000 unit SQ BID [facility] Last Admin: 05/22/18 11:08 Dose: 5,000 unit Insulin Aspart (Novolog Vial Sliding Scale -) 1 vial SQ [facility]; Protocol Last Admin: 05/22/18 12:26 Dose: Not Given Montelukast Sodium (Singulair -) 10 mg PO HS [facility] Last Admin: 05/21/18 21:56 Dose: 10 mg Pantoprazole Sodium (Protonix -) 40 mg PO DAILY [facility] Last Admin: 05/22/18 11:08 Dose: 40 mg Prednisone (Deltasone -) 30 mg PO BID [facility] Last Admin: 05/22/18 11:08 Dose: 30 mg Zolpidem Tartrate (Ambien -) 5 mg PO HS PRN PRN Reason: INSOMNIA Last Admin: 05/21/18 21:58 Dose: 5 mg - Objective Vital Signs: Vital Signs Temperature 98 F 05/22/18 09:00 Pulse Rate 116 H 05/22/18 09:00 Respiratory Rate 22 H 05/22/18 09:00 Blood Pressure 140/58 L 05/22/18 09:00 O2 Sat by Pulse Oximetry (%) 96 05/22/18 11:51 Constitutional: Yes: Calm, Obese Cardiovascular: Yes: Regular Rate and Rhythm, S1, S2 Respiratory: Yes: Diminished Gastrointestinal: Yes: Normal Bowel Sounds, Soft Edema: Yes (improving) Labs: CBC, BMP 05/20/18 06:40 05/20/18 06:40 INR, PTT INR 1.15 (0.83-1.09) H 05/14/18 12:29 Problem List - Problems (1) Acute hypoxemic respiratory failure Assessment/Plan: improving on po prednisone and po lasix bid bipap at night and as needed in day weight dropped from 269 to 265 to 261 to 257 echo left ventricle is normal and function normal Code(s): J96.01 - ACUTE RESPIRATORY FAILURE WITH HYPOXIA (2) COPD (chronic obstructive pulmonary disease) Assessment/Plan: iv medrol now po prednisone 30mg po bid oxygen bronchodilators-symbicort Code(s): J44.9 - CHRONIC OBSTRUCTIVE PULMONARY DISEASE, UNSPECIFIED (3) Fibroid Assessment/Plan: obgyn consult noted tansvaginal sono was done in march shows multiple fibroids Code(s): D21.9 - BENIGN NEOPLASM OF CONNECTIVE AND OTHER SOFT TISSUE, UNSP (4) Anemia Assessment/Plan: appreicate GI note monitor h/h transfuse in H/h< 8 Code(s): D64.9 - ANEMIA, UNSPECIFIED (5) CHF (congestive heart failure) Code(s): I50.9 - HEART FAILURE, UNSPECIFIED Qualifiers: Heart failure type: right-sided
[2018-05-22] MEDS: ATORVASTATIN CA 10 MG TABLET (FP) PO SCH (21:26)
[2018-05-22] MEDS: ZOLPIDEM TARTRATE 5 MG TABLET PO PRN (21:26)
[2018-05-22] MEDS: MONTELUKAST NA 10 MG TABLET PO SCH (21:26)
[2018-05-23] MEDS: FUROSEMIDE 40 MG TABLET (FP) PO SCH ×2 (06:03→14:43)
[2018-05-23] MEDS: INSULIN SLIDING SCALE (NOVOLOG) 1 VIAL SQ SCH ×4 (06:10→21:34)
[2018-05-23] MEDS: ALBUTEROL SO4 2.5/IPRATROPIUM 0.5 INH SOL 3 ML VIAL.NEB. NEB SCH ×4 (07:42→20:20)
[2018-05-23] MEDS: PANTOPRAZOLE 40 MG TABLET (FP) PO SCH (08:59)
[2018-05-23] MEDS: ACETAMINOPHEN WITH CODEINE 300MG/30MG TABLET PO PRN ×3 (08:59→19:55)
[2018-05-23] MEDS: ASPIRIN 81 MG CHEWABLE TABLETS PO SCH (08:59)
[2018-05-23] MEDS: HEPARIN NA (PORCINE) 5,000 UNITS/ML 1ML VIAL SQ SCH ×2 (08:59→21:34)
[2018-05-23] MEDS: predniSONE 10 MG TABLET (UD) PO SCH ×2 (08:59→21:19)
[2018-05-23] MEDS: BUDESONIDE/FORMETEROL FUMARATE 160/4.5 mcg INHALER IH SCH ×2 (09:00→21:21)
--- NOTE | 2018-05-23 14:34 | PN ---
Progress Note (short form) - Note Progress Note: PULMONARY Breathing slowly improving. +nonproductive cough. No chest pain. Leg swelling improving. Vital Signs Period Temp Pulse Resp BP Sys/Cao Pulse Ox Last 24 Hr 98.0 F-98.4 F 104-110 22-28 112-117/71-78 92-98 Gen: less tachypneic Heart: RRR Lung: distant breath sounds Abd: soft, obese, nontender Ext: + edema CBC, BMP 05/20/18 06:40 05/20/18 06:40 Active Medications Acetaminophen/Codeine Phosphate (Tylenol # 3 -) 1 tab PO Q4H PRN PRN Reason: PAIN LEVEL 6-10 Last Admin: 05/23/18 12:57 Dose: 1 tab Albuterol/Ipratropium (Duoneb -) 1 amp NEB RQID [facility] Last Admin: 05/23/18 12:07 Dose: 1 amp Aspirin (Asa -) 81 mg PO DAILY [facility] Last Admin: 05/23/18 08:59 Dose: 81 mg Atorvastatin Calcium (Lipitor -) 10 mg PO HS [facility] Last Admin: 05/22/18 21:26 Dose: 10 mg Budesonide/Formoterol Fumarate (Symbicort 160/4.5mcg -) 2 puff IH BID [facility] Last Admin: 05/23/18 09:00 Dose: 2 puff Furosemide (Lasix -) 60 mg PO BID@0600,1400 [facility] Last Admin: 05/23/18 06:03 Dose: 60 mg Heparin Sodium (Porcine) (Heparin -) 5,000 unit SQ BID [facility] Last Admin: 05/23/18 08:59 Dose: 5,000 unit Insulin Aspart (Novolog Vial Sliding Scale -) 1 vial SQ ACHS [facility]; Protocol Last Admin: 05/23/18 12:55 Dose: Not Given Montelukast Sodium (Singulair -) 10 mg PO HS [facility] Last Admin: 05/22/18 21:26 Dose: 10 mg Pantoprazole Sodium (Protonix -) 40 mg PO DAILY [facility] Last Admin: 05/23/18 08:59 Dose: 40 mg Prednisone (Deltasone -) 30 mg PO BID [facility] Last Admin: 05/23/18 08:59 Dose: 30 mg Zolpidem Tartrate (Ambien -) 5 mg PO HS PRN PRN Reason: INSOMNIA Last Admin: 05/22/18 21:26 Dose: 5 mg A/P Acute on Chronic Hypoxic Respiratory Failure Acute COPD Exacerbation Right Heart Failure/Pulmonary HTN Morbid Obesity Likely MARTINA/OHS Smoker - slow prednisone taper - inhaled bronchodilators - continue lasix - monitor urine output, creatinine - daily weights - O2 to keep Spo2 >90% - BiPAP at night and PRN during day - DVT prophylaxis
--- NOTE | 2018-05-23 16:39 | PN ---
Progress Note, Physician Chief Complaint: SOB Hypoxia COPD exacerbation Uterine Fibroids History of Present Illness: NAD on bipap SOB even at rest Tolerating nasal o2 5-6 LPM to maintain SpO2 >90% Upset when informed she is improving and would go home soon. Wants to get her fibroids removed before discharge. Awaiting pulmonary clearance. Unaware of having COPD-quite upset when told. States it's not her lungs but massive fibroids that is causing her SOB. - Current Medication List Current Medications: Active Medications Acetaminophen/Codeine Phosphate (Tylenol # 3 -) 1 tab PO Q4H PRN PRN Reason: PAIN LEVEL 6-10 Last Admin: 05/23/18 12:57 Dose: 1 tab Albuterol/Ipratropium (Duoneb -) 1 amp NEB RQID [facility] Last Admin: 05/23/18 16:13 Dose: 1 amp Aspirin (Asa -) 81 mg PO DAILY [facility] Last Admin: 05/23/18 08:59 Dose: 81 mg Atorvastatin Calcium (Lipitor -) 10 mg PO HS [facility] Last Admin: 05/22/18 21:26 Dose: 10 mg Budesonide/Formoterol Fumarate (Symbicort 160/4.5mcg -) 2 puff IH BID [facility] Last Admin: 05/23/18 09:00 Dose: 2 puff Furosemide (Lasix -) 60 mg PO BID@0600,1400 [facility] Last Admin: 05/23/18 14:43 Dose: 60 mg Heparin Sodium (Porcine) (Heparin -) 5,000 unit SQ BID [facility] Last Admin: 05/23/18 08:59 Dose: 5,000 unit Insulin Aspart (Novolog Vial Sliding Scale -) 1 vial SQ ACHS [facility]; Protocol Last Admin: 05/23/18 16:38 Dose: Not Given Montelukast Sodium (Singulair -) 10 mg PO HS [facility] Last Admin: 05/22/18 21:26 Dose: 10 mg Pantoprazole Sodium (Protonix -) 40 mg PO DAILY [facility] Last Admin: 05/23/18 08:59 Dose: 40 mg Prednisone (Deltasone -) 30 mg PO BID [facility] Last Admin: 05/23/18 08:59 Dose: 30 mg Zolpidem Tartrate (Ambien -) 5 mg PO HS PRN PRN Reason: INSOMNIA Last Admin: 05/22/18 21:26 Dose: 5 mg - Objective Vital Signs: Vital Signs Temperature 98.6 F 05/23/18 09:00 Pulse Rate 106 H 05/23/18 09:00 Respiratory Rate 22 H 05/23/18 09:00 Blood Pressure 120/77 05/23/18 09:00 O2 Sat by Pulse Oximetry (%) 98 05/23/18 16:13 Constitutional: Yes: Well Nourished, Anxious, Mild Distress, Obese Cardiovascular: Yes: Regular Rate and Rhythm Respiratory: Yes: Regular, On BiPap, On Nasal O2, SOB, SOB on Exertion Gastrointestinal: Yes: Normal Bowel Sounds, Soft, Abdomen, Obese Musculoskeletal: Yes: Muscle Weakness Edema: No Peripheral Pulses WNL: Yes Neurological: Yes: Alert, Oriented Psychiatric: Yes: Alert, Oriented Labs: CBC, BMP 05/20/18 06:40 05/20/18 06:40 INR, PTT INR 1.15 (0.83-1.09) H 05/14/18 12:29 Problem List - Problems (1) Acute hypoxemic respiratory failure Assessment/Plan: -pulmonary consult -Nasal O2/ BIPAP to maintain SpO2 >90% -bronchodilators -prednisone Code(s): J96.01 - ACUTE RESPIRATORY FAILURE WITH HYPOXIA (2) Anemia Assessment/Plan: -JANET -Venofer x 1 -start ferrous sulfate 1 tab bid -monitor trend Code(s): D64.9 - ANEMIA, UNSPECIFIED (3) Fibroid Assessment/Plan: -Seen by MAINTENANCE PORTER -Suggested D&C hysteroscopy as outpatient when stable Code(s): D21.9 - BENIGN NEOPLASM OF CONNECTIVE AND OTHER SOFT TISSUE, UNSP (4) COPD (chronic obstructive pulmonary disease) Assessment/Plan: -CT chest reviewed -Smoking cessation counseling -pulmonary consult -bronchodilators Code(s): J44.9 - CHRONIC OBSTRUCTIVE PULMONARY DISEASE, UNSPECIFIED (5) DM (diabetes mellitus) Assessment/Plan: -BGM AC HS -A1c 6.8 -low sodium Diabetic diet -Novolog sliding scale Code(s): E11.9 - TYPE 2 DIABETES MELLITUS WITHOUT COMPLICATIONS Qualifiers: Diabetes mellitus type: type 2 (6) Obesity Code(s): E66.9 - OBESITY, UNSPECIFIED Qualifiers: Obesity type: due to excess calories (7) Shortness of breath Code(s): R06.02 - SHORTNESS OF BREATH Assessment/Plan see problem list
[2018-05-23] MEDS: MONTELUKAST NA 10 MG TABLET PO SCH (21:20)
[2018-05-23] MEDS: ATORVASTATIN CA 10 MG TABLET (FP) PO SCH (21:21)
[2018-05-23] MEDS: ZOLPIDEM TARTRATE 5 MG TABLET PO PRN (21:21)
[2018-05-24] MEDS: FUROSEMIDE 40 MG TABLET (FP) PO SCH ×2 (05:51→16:33)
[2018-05-24] MEDS: ACETAMINOPHEN WITH CODEINE 300MG/30MG TABLET PO PRN ×4 (05:58→21:31)
[2018-05-24] MEDS: INSULIN SLIDING SCALE (NOVOLOG) 1 VIAL SQ SCH ×4 (06:00→21:34)
[2018-05-24] MEDS: ALBUTEROL SO4 2.5/IPRATROPIUM 0.5 INH SOL 3 ML VIAL.NEB. NEB SCH ×4 (07:48→20:38)
[2018-05-24] MEDS: PANTOPRAZOLE 40 MG TABLET (FP) PO SCH (09:13)
[2018-05-24] MEDS: ASPIRIN 81 MG CHEWABLE TABLETS PO SCH (09:13)
[2018-05-24] MEDS: predniSONE 10 MG TABLET (UD) PO SCH ×2 (09:13→21:30)
[2018-05-24] MEDS: BUDESONIDE/FORMETEROL FUMARATE 160/4.5 mcg INHALER IH SCH ×2 (09:13→21:58)
[2018-05-24] MEDS: HEPARIN NA (PORCINE) 5,000 UNITS/ML 1ML VIAL SQ SCH ×2 (10:32→21:30)
--- NOTE | 2018-05-24 11:28 | PN ---
Progress Note, Physician Chief Complaint: SOB Hypoxia History of Present Illness: NAD on bipap SOB even at rest Tolerating nasal o2 5-6 LPM to maintain SpO2 >90% Upset when informed she is improving and would go home soon. Wants to get her fibroids removed before discharge. Awaiting pulmonary clearance. Unaware of having COPD-quite upset when told. States it's not her lungs but massive fibroids that is causing her SOB. - Current Medication List Current Medications: Active Medications Acetaminophen/Codeine Phosphate (Tylenol # 3 -) 1 tab PO Q4H PRN PRN Reason: PAIN LEVEL 6-10 Last Admin: 05/24/18 10:29 Dose: 1 tab Albuterol/Ipratropium (Duoneb -) 1 amp NEB RQID [facility] Last Admin: 05/24/18 07:48 Dose: 1 amp Aspirin (Asa -) 81 mg PO DAILY [facility] Last Admin: 05/24/18 09:13 Dose: 81 mg Atorvastatin Calcium (Lipitor -) 10 mg PO HS [facility] Last Admin: 05/23/18 21:21 Dose: 10 mg Budesonide/Formoterol Fumarate (Symbicort 160/4.5mcg -) 2 puff IH BID [facility] Last Admin: 05/24/18 09:13 Dose: 2 puff Furosemide (Lasix -) 60 mg PO BID@0600,1400 [facility] Last Admin: 05/24/18 05:51 Dose: 60 mg Heparin Sodium (Porcine) (Heparin -) 5,000 unit SQ BID [facility] Last Admin: 05/24/18 10:32 Dose: Not Given Insulin Aspart (Novolog Vial Sliding Scale -) 1 vial SQ [facility]; Protocol Last Admin: 05/24/18 06:00 Dose: Not Given Montelukast Sodium (Singulair -) 10 mg PO HS [facility] Last Admin: 05/23/18 21:20 Dose: 10 mg Pantoprazole Sodium (Protonix -) 40 mg PO DAILY [facility] Last Admin: 05/24/18 09:13 Dose: 40 mg Prednisone (Deltasone -) 30 mg PO BID [facility] Last Admin: 05/24/18 09:13 Dose: 30 mg - Objective Vital Signs: Vital Signs Temperature 98 F 05/24/18 09:12 Pulse Rate 104 H 05/24/18 09:12 Respiratory Rate 20 05/24/18 09:12 Blood Pressure 116/79 05/24/18 09:12 O2 Sat by Pulse Oximetry (%) 92 L 05/24/18 07:15 Constitutional: Yes: Well Nourished, No Distress, Calm, Obese Cardiovascular: Yes: Regular Rate and Rhythm Respiratory: Yes: Regular, On BiPap, On Nasal O2 Gastrointestinal: Yes: Normal Bowel Sounds, Soft, Abdomen, Obese Musculoskeletal: Yes: WNL Extremities: Yes: WNL Edema: No Peripheral Pulses WNL: Yes Neurological: Yes: Alert, Oriented Psychiatric: Yes: Alert, Oriented Labs: CBC, BMP 05/20/18 06:40 05/20/18 06:40 INR, PTT INR 1.15 (0.83-1.09) H 05/14/18 12:29 Problem List - Problems (1) Acute hypoxemic respiratory failure Assessment/Plan: -pulmonary consult -Nasal O2/ BIPAP to maintain SpO2 >90% -bronchodilators -prednisone Code(s): J96.01 - ACUTE RESPIRATORY FAILURE WITH HYPOXIA (2) Anemia Assessment/Plan: -JANET -Venofer x 1 -start ferrous sulfate 1 tab bid -monitor trend Code(s): D64.9 - ANEMIA, UNSPECIFIED (3) Fibroid Assessment/Plan: -Seen by APPRAISER ART -Suggested D&C hysteroscopy as outpatient when stable Code(s): D21.9 - BENIGN NEOPLASM OF CONNECTIVE AND OTHER SOFT TISSUE, UNSP (4) COPD (chronic obstructive pulmonary disease) Assessment/Plan: -CT chest reviewed -Smoking cessation counseling -pulmonary consult -bronchodilators Code(s): J44.9 - CHRONIC OBSTRUCTIVE PULMONARY DISEASE, UNSPECIFIED (5) DM (diabetes mellitus) Assessment/Plan: -BGM AC HS -A1c 6.8 -low sodium Diabetic diet -Novolog sliding scale Code(s): E11.9 - TYPE 2 DIABETES MELLITUS WITHOUT COMPLICATIONS Qualifiers: Diabetes mellitus type: type 2 (6) Obesity Code(s): E66.9 - OBESITY, UNSPECIFIED Qualifiers: Obesity type: due to excess calories (7) Shortness of breath Code(s): R06.02 - SHORTNESS OF BREATH Assessment/Plan see problem list
--- NOTE | 2018-05-24 12:18 | PN ---
Progress Note (short form) - Note Progress Note: PULMONARY Breathing slowly improving. +nonproductive cough. No chest pain. Leg swelling improving. Vital Signs Period Temp Pulse Resp BP Sys/Cao Pulse Ox Last 24 Hr 98 F-99.0 F 95-110 18-20 102-123/73-88 91-98 Gen: less tachypneic Heart: RRR Lung: distant breath sounds Abd: soft, obese, nontender Ext: + edema CBC, BMP 05/20/18 06:40 05/20/18 06:40 Active Medications Acetaminophen/Codeine Phosphate (Tylenol # 3 -) 1 tab PO Q4H PRN PRN Reason: PAIN LEVEL 6-10 Last Admin: 05/24/18 10:29 Dose: 1 tab Albuterol/Ipratropium (Duoneb -) 1 amp NEB RQID [facility] Last Admin: 05/24/18 11:42 Dose: 1 amp Aspirin (Asa -) 81 mg PO DAILY [facility] Last Admin: 05/24/18 09:13 Dose: 81 mg Atorvastatin Calcium (Lipitor -) 10 mg PO HS [facility] Last Admin: 05/23/18 21:21 Dose: 10 mg Budesonide/Formoterol Fumarate (Symbicort 160/4.5mcg -) 2 puff IH BID [facility] Last Admin: 05/24/18 09:13 Dose: 2 puff Furosemide (Lasix -) 60 mg PO BID@0600,1400 [facility] Last Admin: 05/24/18 05:51 Dose: 60 mg Heparin Sodium (Porcine) (Heparin -) 5,000 unit SQ BID [facility] Last Admin: 05/24/18 10:32 Dose: Not Given Insulin Aspart (Novolog Vial Sliding Scale -) 1 vial SQ ACHS [facility]; Protocol Last Admin: 05/24/18 06:00 Dose: Not Given Montelukast Sodium (Singulair -) 10 mg PO HS [facility] Last Admin: 05/23/18 21:20 Dose: 10 mg Pantoprazole Sodium (Protonix -) 40 mg PO DAILY [facility] Last Admin: 05/24/18 09:13 Dose: 40 mg Prednisone (Deltasone -) 30 mg PO BID [facility] Last Admin: 05/24/18 09:13 Dose: 30 mg A/P Acute on Chronic Hypoxic Respiratory Failure Acute COPD Exacerbation Right Heart Failure/Pulmonary HTN Morbid Obesity Likely MARTINA/OHS Smoker - slow prednisone taper - inhaled bronchodilators - continue lasix - monitor urine output, creatinine - daily weights - O2 to keep Spo2 >90% - BiPAP at night and PRN during day - DVT prophylaxis
[2018-05-24] MEDS: ATORVASTATIN CA 10 MG TABLET (FP) PO SCH (21:31)
[2018-05-24] MEDS: MONTELUKAST NA 10 MG TABLET PO SCH (21:31)
[2018-05-25] MEDS: INSULIN SLIDING SCALE (NOVOLOG) 1 VIAL SQ SCH ×3 (06:16→17:54)
[2018-05-25] MEDS: FUROSEMIDE 40 MG TABLET (FP) PO SCH ×2 (06:19→18:13)
[2018-05-25] MEDS: ACETAMINOPHEN WITH CODEINE 300MG/30MG TABLET PO PRN ×2 (06:46→12:24)
[2018-05-25] MEDS: ALBUTEROL SO4 2.5/IPRATROPIUM 0.5 INH SOL 3 ML VIAL.NEB. NEB SCH ×3 (07:35→15:22)
[2018-05-25 07:41] LABS: ALBUMIN 2.6 g/dl (3.4-5.0); ALK PHOS 85 U/L (45-117); ANION GAP 7 MMOL/L (8-16); BILIRUBIN,TOTAL 0.5 mg/dL (0.2-1); BLOOD UREA NITROGEN 35 mg/dL (7-18); CALCIUM 8.6 mg/dL (8.5-10.1); CHLORIDE 94 mmol/L (98-107); CO2 33 mmol/L (21-32); CREATININE 0.9 mg/dL (0.55-1.3); GLUCOSE,RANDOM 130 mg/dL (74-106); POTASSIUM 4.5 mmol/L (3.5-5.1); SGOT/AST 18 U/L (15-37); SGPT/ALT 38 U/L (13-61); SODIUM 134 mmol/L (136-145); TOT PROT 6.7 g/dl (6.4-8.2)
[2018-05-25] MEDS ORDERED: IRON SUCROSE INJECTION 300 MG in SODIUM CHLORIDE 235 ML IVPB ONE (08:00)
[2018-05-25 08:31] LABS: HEMATOCRIT 29.3 % (32.4-45.2); HEMOGLOBIN 9.3 GM/dL (10.7-15.3); MCHC 31.8 g/dl (32.0-36.0); MEAN CELL VOLUME 65.8 fl (80-96); MEAN PLT VOLUME 9.2 fl (7.5-11.1); PLATELET COUNT 172 K/MM3 (134-434); RBC 4.45 M/mm3 (3.60-5.2); WHITE BLOOD COUNT 12.4 K/mm3 (4.0-10.0)
[2018-05-25 08:39] LABS: ADD RBC MORPHOLOGY YES
[2018-05-25] MEDS ORDERED: PT OWN MED DRAWER 7, Y5N ONE (09:21)
[2018-05-25] MEDS ORDERED: FERROUS SO4 325 MG TABLET (FP) PO SCH (10:00)
[2018-05-25 11:03] LABS: ANISOCYTOSIS 2+; MACROCYTOSIS 0; PLATELET ESTIMATE NORMAL; TARGET CELLS 2+
[2018-05-25 11:13] VITALS: TEMP 99
--- NOTE | 2018-05-25 11:37 | PN ---
Progress Note, Physician Chief Complaint: patient seen and examined wants to see her obgyn doctor explained to her need for venofer bipap used at night - Current Medication List Current Medications: Active Medications Acetaminophen/Codeine Phosphate (Tylenol # 3 -) 1 tab PO Q4H PRN PRN Reason: PAIN LEVEL 4 - 6 Last Admin: 05/25/18 06:46 Dose: 1 tab Albuterol/Ipratropium (Duoneb -) 1 amp NEB RQID [facility] Last Admin: 05/25/18 11:23 Dose: 1 amp Aspirin (Asa -) 81 mg PO DAILY [facility] Last Admin: 05/24/18 09:13 Dose: 81 mg Atorvastatin Calcium (Lipitor -) 10 mg PO [facility] Last Admin: 05/24/18 21:31 Dose: 10 mg Budesonide/Formoterol Fumarate (Symbicort 160/4.5mcg -) 2 puff IH BID [facility] Last Admin: 05/24/18 21:58 Dose: 2 puff Ferrous Sulfate (Feosol -) 325 mg PO DAILY [facility] Furosemide (Lasix -) 60 mg PO BID@0600,1400 [facility] Last Admin: 05/25/18 06:19 Dose: 60 mg Heparin Sodium (Porcine) (Heparin -) 5,000 unit SQ BID [facility] Last Admin: 05/24/18 21:30 Dose: 5,000 unit Insulin Aspart (Novolog Vial Sliding Scale -) [address] [facility]; Protocol Last Admin: 05/25/18 06:16 Dose: Not Given Montelukast Sodium (Singulair -) 10 mg PO [facility] Last Admin: 05/24/18 21:31 Dose: 10 mg Pantoprazole Sodium (Protonix -) 40 mg PO DAILY [facility] Last Admin: 05/24/18 09:13 Dose: 40 mg Prednisone (Deltasone -) 30 mg PO BID [facility] Last Admin: 05/24/18 21:30 Dose: 30 mg - Objective Vital Signs: Vital Signs Temperature 99 F 05/25/18 10:00 Pulse Rate 106 H 05/25/18 10:00 Respiratory Rate 20 05/25/18 10:00 Blood Pressure 107/85 05/25/18 10:00 O2 Sat by Pulse Oximetry (%) 96 05/25/18 08:19 Constitutional: Yes: Calm Cardiovascular: Yes: Regular Rate and Rhythm, S1, S2 Respiratory: Yes: Diminished, On Nasal O2 Gastrointestinal: Yes: Normal Bowel Sounds, Soft, Abdomen, Obese Edema: Yes (improved) Neurological: Yes: Alert, Oriented Labs: CBC, BMP 05/25/18 06:00 05/25/18 06:00 INR, PTT INR 1.15 (0.83-1.09) H 05/14/18 12:29 Problem List - Problems (1) Acute hypoxemic respiratory failure Assessment/Plan: improving on po prednisone 30mg po bid and po lasix bid bipap at night and as needed in day weight dropped from 269 to 265 to 261 to 257- 255 echo left ventricle is normal and function normal Code(s): J96.01 - ACUTE RESPIRATORY FAILURE WITH HYPOXIA (2) COPD (chronic obstructive pulmonary disease) Assessment/Plan: iv medrol now po prednisone 30mg po bid bipap at night and as needed during the day oxygen bronchodilators-symbicort Code(s): J44.9 - CHRONIC OBSTRUCTIVE PULMONARY DISEASE, UNSPECIFIED (3) Fibroid Assessment/Plan: obgyn consult noted- will have obgyn see her again today tansvaginal sono was done in March shows multiple fibroids Code(s): D21.9 - BENIGN NEOPLASM OF CONNECTIVE AND OTHER SOFT TISSUE, UNSP (4) Anemia Assessment/Plan: appreicate GI note monitor h/h iron panel noted needs iv venofer explained to the patient the need for iv iron transfuse in H/h< 8 Code(s): D64.9 - ANEMIA, UNSPECIFIED (5) CHF (congestive heart failure) Code(s): I50.9 - HEART FAILURE, UNSPECIFIED Qualifiers: Heart failure type: right-sided Assessment/Plan steroids bipap iv venofer obgyn follow up
[2018-05-25] MEDS: predniSONE 10 MG TABLET (UD) PO SCH (12:25)
[2018-05-25] MEDS: PANTOPRAZOLE 40 MG TABLET (FP) PO SCH (12:25)
[2018-05-25] MEDS: ASPIRIN 81 MG CHEWABLE TABLETS PO SCH (12:25)
[2018-05-25] MEDS: BUDESONIDE/FORMETEROL FUMARATE 160/4.5 mcg INHALER IH SCH (12:25)
[2018-05-25] MEDS: HEPARIN NA (PORCINE) 5,000 UNITS/ML 1ML VIAL SQ SCH (14:16)
--- NOTE | 2018-05-25 15:00 | PN ---
Progress Note (short form) - Note Progress Note: Breathing slowly continues to improve. Still with some non-productive cough. No CP. Intake & Output 05/22/18 05/23/18 05/24/18 05/25/18 23:59 23:59 23:59 23:59 Intake Total 10 600 350 450 Balance 10 600 350 450 Weight 257 lb 12.8 oz 256 lb 255 lb 2 oz Last Vital Signs Temp Pulse Resp BP Pulse Ox 99 F 106 H 20 107/85 96 05/25/18 10:00 05/25/18 10:00 05/25/18 10:00 05/25/18 10:00 05/25/18 08:19 Active Medications Acetaminophen/Codeine Phosphate (Tylenol # 3 -) 1 tab PO Q4H PRN PRN Reason: PAIN LEVEL 4 - 6 Last Admin: 05/25/18 12:24 Dose: 1 tab Albuterol/Ipratropium (Duoneb -) 1 amp NEB RQID [facility] Last Admin: 05/25/18 11:23 Dose: 1 amp Aspirin (Asa -) 81 mg PO DAILY [facility] Last Admin: 05/25/18 12:25 Dose: 81 mg Atorvastatin Calcium (Lipitor -) 10 mg PO HS [facility] Last Admin: 05/24/18 21:31 Dose: 10 mg Budesonide/Formoterol Fumarate (Symbicort 160/4.5mcg -) 2 puff IH BID [facility] Last Admin: 05/25/18 12:25 Dose: 2 puff Ferrous Sulfate (Feosol -) 325 mg PO DAILY [facility] Last Admin: 05/25/18 12:25 Dose: 325 mg Furosemide (Lasix -) 60 mg PO BID@0600,1400 [facility] Last Admin: 05/25/18 06:19 Dose: 60 mg Heparin Sodium (Porcine) (Heparin -) 5,000 unit SQ BID [facility] Last Admin: 05/25/18 14:16 Dose: Not Given Insulin Aspart (Novolog Vial Sliding Scale -) 1 vial SQ [facility]; Protocol Last Admin: 05/25/18 12:26 Dose: Not Given Montelukast Sodium (Singulair -) 10 mg PO HS [facility] Last Admin: 05/24/18 21:31 Dose: 10 mg Pantoprazole Sodium (Protonix -) 40 mg PO DAILY [facility] Last Admin: 05/25/18 12:25 Dose: 40 mg Prednisone (Deltasone -) 30 mg PO BID [facility] Last Admin: 05/25/18 12:25 Dose: 30 mg Gen: less tachypneic Heart: RRR Lung: distant breath sounds Abd: soft, obese, nontender Ext: + edema Laboratory Results - last 24 hr 05/24/18 05/24/18 05/25/18 17:07 21:29 05:31 WBC RBC Hgb Hct MCV MCH MCHC RDW Plt Count MPV Neutrophils % Neutrophils % (Manual) Band Neutrophils % Lymphocytes % Lymphocytes % (Manual) Monocytes % (Manual) Eosinophils % (Manual) Basophils % (Manual) Myelocytes % (Man) Promyelocytes % (Man) Blast Cells % (Manual) Nucleated RBC % Metamyelocytes Hypochromia Platelet Estimate Polychromasia Poikilocytosis Anisocytosis Microcytosis Macrocytosis Target Cells Sodium Potassium Chloride Carbon Dioxide Anion Gap BUN Creatinine Creat Clearance w eGFR POC Glucometer 128 172 144 Random Glucose Calcium Total Bilirubin AST ALT Alkaline Phosphatase Total Protein Albumin 05/25/18 05/25/18 05/25/18 06:00 06:00 11:59 WBC 12.4 H RBC 4.45 Hgb 9.3 L Hct 29.3 L MCV 65.8 L MCH 21.0 L MCHC 31.8 L RDW 19.0 H Plt Count 172 D MPV 9.2 Neutrophils % No Result Required. Neutrophils % (Manual) 86.0 H Band Neutrophils % 0.0 Lymphocytes % No Result Required. Lymphocytes % (Manual) 7.0 L Monocytes % (Manual) 4 Eosinophils % (Manual) 0.0 Basophils % (Manual) 0.0 Myelocytes % (Man) 1 Promyelocytes % (Man) 0 Blast Cells % (Manual) 0 Nucleated RBC % 2 H Metamyelocytes 1 Hypochromia 1+ Platelet Estimate Normal Polychromasia 0 Poikilocytosis 2+ Anisocytosis 2+ Microcytosis 2+ Macrocytosis 0 Target Cells 2+ Sodium 134 L Potassium 4.5 Chloride 94 L Carbon Dioxide 33 H Anion Gap 7 L BUN 35 H Creatinine 0.9 Creat Clearance w eGFR 63.65 POC Glucometer 99 Random Glucose 130 H Calcium 8.6 Total Bilirubin 0.5 AST 18 ALT 38 Alkaline Phosphatase 85 Total Protein 6.7 Albumin 2.6 L A/P Acute on Chronic Hypoxic Respiratory Failure Acute COPD Exacerbation Right Heart Failure/Pulmonary HTN Morbid Obesity Likely MARTINA/OHS Smoker - Prednisone - inhaled bronchodilators - lasix - monitor urine output, creatinine - daily weights - O2 to keep Spo2 >90% - BiPAP at night and PRN during day - DVT prophylaxis - no smoking - D/C planning Dr Arizmendi
[2018-05-25 15:37] VITALS: BP 127/80; PULSE 101
[2018-05-25] MEDS ORDERED: FUROSEMIDE 100 MG/10 ML INJECTABLE VIAL IVPB ONE (19:37)
[2018-05-25] MEDS ORDERED: ALBUTEROL SO4 2.5/IPRATROPIUM 0.5 INH SOL 3 ML VIAL.NEB. NEB PRN (19:37)
[2018-05-25 19:39] LABS: ALLENS TEST POSITIVE; ARTERIAL BLD GAS O2 SATURATION 99.2 % (95-98); ARTERIAL BLOOD GAS BASE EXCESS -8.1 meq/l (-2-2); ARTERIAL BLOOD GAS PCO2 43.8 mmHg (35-45); ARTERIAL BLOOD GAS PO2 328 mmHg (80-105)
[2018-05-25 19:40] LABS: ARTERIAL BLOOD GAS pH 7.25 (7.35-7.45)
[2018-05-25] MEDS ORDERED: FUROSEMIDE 40 MG/4 ML INJECTABLE VIAL ONE (19:44)
--- NOTE | 2018-05-25 19:44 | RAPID ---
Physical Examination Vital Signs: Vital Signs Temperature 99 F 05/25/18 10:00 Pulse Rate 101 H 05/25/18 14:00 Respiratory Rate 20 05/25/18 10:00 Blood Pressure 127/80 05/25/18 14:00 O2 Sat by Pulse Oximetry (%) 96 05/25/18 15:20 vitals : 106/69 , 59, 99 % o2 sat 114/57 119/75 141/76 Rapid response was called at 7.20 pm , for pt mentioned , due to hypoxia and sob upon arrival with Dr Elder pt was saturating 99% on BIPAP ,pt was agitated, but AAOx3 , she pulled out her IV line PE : Head NC/AT Lungs: decrease breath sound at bases Heart : Sinus tachy Abdomen: obese , soft, ND, NT Legs: edema +1 B/L , +2 DP EKG was done with SVT @ 140 CXR ordered stat 80 lasix was given IV ABG stat (7.24, Pco2 43.8, po2 328) DUO NEB ordered was not given pt was transfer to ICU , ICU resident Vy was called Cardiology Dr Allen was informed Primary team Dr Darcy mari (kanika TOWNSEND is covering ) was informed morning X ray repeat ABG trop ordered cbc, cmp , A/P # CHF exacerbation #COPD exacerbation #New onset Afib can not R/O massive PE pt was on hep SQ BID for proph but was not given as pt refused In Elevator pt was AAOx3 following commands (moved her self to bed and pull her hand upon request ) pt was transferred to ICU bed was AOx3 shortly after that code 99 was called rest per ICU code notice pt was resuscitated for more than an hour and pronounced at 9:05 PM Labs: CBC, BMP 05/25/18 06:00 05/25/18 06:00
[2018-05-25] MEDS ORDERED: METOPROLOL TARTRATE 5 MG/5 ML VIAL IVPUSH ONE (19:54)
[2018-05-25] MEDS ORDERED: EPINEPHrine 1:10,000 (P-F SYR) 1 MG/10 ML DISP.SYRIN ONE (20:28)
[2018-05-25] MEDS ORDERED: SODIUM BICARBONATE 8.4% - 50 ML ONE (20:28)
--- NOTE | 2018-05-25 21:23 | PN ---
Progress Note (short form) - Note Progress Note: Rapid response was called in [facility] at 7:20 pm today for shortness of breath. As per the resident, she was complaining of worsening shortness of breath. Stat ABG, CXR and labs were sent. Patient was then placed on Bipap. ABG on Bipap- pH : 7.25; Co2 43.8, PO2- 328. Patient was then transferred to ICU for further monitoring. En route, she was responsive, awake, alert, oriented. Patient was brought in to the ICU, bed 13. Patient was transferred to the bed. Her shortness of breath worsened, she was cold, sweating, restless then became non verbal (not at baseline). She had bowel incontinence, trying to get out of bed, trying to bite RN's finger, very restless. Within seconds she went into asystole. CPR was started immediately. Code 99 called at 8:05 pm. Hospitalist team arrived. ACLS protocol was followed. ED physician and ED residents helped to put an IO and intubated the patient. On repeated pulse check and rhythm check, patient went in and out of Asystole and PEA. Drugs given: 10 rounds of epi; 3 amps of Sodium bicarb, 2 amps of Calcium chloride Patient went into Vfib and shocked 3 times and followed ACLS protocol. Bed side ultrasound was used to check the cardiac activity, she didn't have any cardiac activity. Bed side doppler was also used to check the pulse, couldn't get pulse throughout the code. A During the code, call placed to the neice and made aware. Continued Code for 60 minutes. Patient pronounced at 9:05 pm. Used patient's cell phone to contact her family. (Ms. Anabella Franco-sister ([phone]), Brother and his Mr. Jaime Franco/ Sonal and nephew Mr. Federico Franco) arrived after the code. Primary team and ICU attending made aware.
--- NOTE | 2018-05-26 10:42 | EKG ---
Test Reason : Blood Pressure : / mmHG Vent. Rate : 107 BPM Atrial Rate : 107 BPM P-R Int : 000 ms QRS Dur : 100 ms QT Int : 356 ms P-R-T Axes : 000 084 063 degrees QTc Int : 475 ms POOR DATA QUALITY, INTERPRETATION MAY BE ADVERSELY AFFECTED ACCELERATED JUNCTIONAL RHYTHM ST ELEVATION CONSIDER INFERIOR INJURY OR ACUTE INFARCT ACUTE TX / STEMI Consider right ventricular involvement in acute inferior infarct ABNORMAL ECG WHEN COMPARED WITH ECG OF 20-MAY-2018 06:16, JUNCTIONAL RHYTHM HAS REPLACED SINUS RHYTHM INCOMPLETE LEFT BUNDLE BRANCH BLOCK IS NO LONGER PRESENT ST NOW DEPRESSED IN LATERAL LEADS Confirmed by Christopher Allen MD ([id number]) on 05/26/2018 10:42:17 AM Referred By: Confirmed By:Christopher Allen MD
--- NOTE | 2018-06-03 11:10 | DS ---
Physical Examination Vital Signs: Vital Signs Temperature 99 F 05/25/18 10:00 Pulse Rate 101 H 05/25/18 14:00 Respiratory Rate 20 05/25/18 10:00 Blood Pressure 127/80 05/25/18 14:00 O2 Sat by Pulse Oximetry (%) 96 05/25/18 15:20 Labs: CBC, BMP 05/25/18 06:00 05/25/18 06:00 Discharge Summary Reason For Visit: ACUTE RESP FAILURE WITH HYPOXEMIA Other Procedures: chest ct done shows copd Hospital Course: - Primary Care Physician PCP: Maurilio Trivedi - Admission Chief Complaint: sob for 3 weels History of Present Illness: The patient is a 62 year old female (current everyday smoker), with a significant PMH of COPD, asthma, sleep apnea, diabetes, hypertension, hypercholesterolemia, who presents to the emergency department today complaining of shortness of breath for 1 week. Patient was sent by Dr. Trivedi for her progressively worsening dyspnea on exertion and orthopnea. She reports her O2 level was 86 today, and endorses increased use of her portable O2 machine secondary to her worsening SOB. Patient also reports bilateral lower extremity edema, and notes she has not been compliant with her medications lately (only takes them when she feels it is necessary). She notes she has a massive uterine fibroid tumor, which she was told is pressing on her diaphragm causing her SOB. per patient she follwed Dr vasquez and was geting pre op clearance for fibroid removal but developed shortness of breath patient was on tele floor and was on steroids and iv lasix seen by obtgyn and surgery was defferrred patient has rapid response for sob placed on bipap given lasix code 99 called Condition: - Instructions Referrals: Christina Molina [Primary Care Provider] - Disposition: - Home Medications Comprehensive Discharge Medication List: Ambulatory Orders Albuterol Sulfate Inhaler - [Ventolin HFA Inhaler -] 1 - 2 inh PO QID PRN Omeprazole [Prilosec] 40 mg PO DAILY 09/29/15 Zolpidem Tartrate [Ambien] 5 mg PO HS 09/29/15 Budesonide/Formeterol Fumarate [SYMBICORT 160/4.5mcg -] 2 puff IH BID #1 inhaler 10/04/15 Meloxicam 7.5 mg PO DAILY PRN #0 10/04/15 Montelukast Na [Singulair -] 10 mg PO HS #30 tablet 10/04/15 Pravastatin Sodium 10 mg PO HS #0 10/04/15 Aspirin [ASA -] 81 mg PO DAILY 04/22/18 Gabapentin 300 mg PO QID 04/22/18 Ibuprofen 800 mg PO QID PRN 04/22/18 Linagliptin [Tradjenta] 5 mg PO DAILY 04/22/18
== END 2018-05-25 21:05 | disposition expired | DRG 189 ==
LOC: JER 11:31 → JERBED 13:51 → J4W 17:13 → JICU 05-25 20:03
PROVIDERS: ADMIT Student in an Organized Health Care Education/Training Program; ATTEND Student in an Organized Health Care Education/Training Program
PROC: 5A12012 Performance of Cardiac Output, Single, Manual (ICD-10-PCS; principal; 2018-05-25)
PROC: 0CHY7BZ Insertion of Airway into Mouth and Throat, Via Natural or Artificial Opening (ICD-10-PCS; 2018-05-25)
DX: J96.01 Acute respiratory failure with hypoxia (principal); Z68.42 Body mass index [BMI] 45.0-49.9, adult; J44.1 Chronic obstructive pulmonary disease with (acute) exacerbation; I47.1 Supraventricular tachycardia; I10 Essential (primary) hypertension; E78.00 Pure hypercholesterolemia, unspecified; F17.210 Nicotine dependence, cigarettes, uncomplicated; E11.9 Type 2 diabetes mellitus without complications; E66.01 Morbid (severe) obesity due to excess calories; D21.9 Benign neoplasm of connective and other soft tissue, unspecified; N93.9 Abnormal uterine and vaginal bleeding, unspecified; D25.9 Leiomyoma of uterus, unspecified; I27.20 Pulmonary hypertension, unspecified; G47.33 Obstructive sleep apnea (adult) (pediatric); D64.9 Anemia, unspecified; I50.810 Right heart failure, unspecified; R15.9 Full incontinence of feces
CPT/HCPCS: 36415; 36600; 71045-TC-FY; 71250-TC; 80048; 80053; 82550; 82728; 82803; 82962; 83036; 83540; 83550; 83735; 83880; 84100; 84484; 85025; 85610; 93005; 93010; 93306-TC; 94640; 94660; 99284-25; J1644; J1756